=== PATIENT | male | born 1985 | race African-American/Black ===

== ENCOUNTER 2020-01-14 10:24 | Emergency (ER) | payer MEDICAID, SELFPAY ==
[~2020-01-14] VITALS: Ht 172.7 cm; Wt 64.7 kg
[2020-01-14] MEDS ORDERED: NS 1,000 ML IV ONE (10:45)
[2020-01-14 11:13] LABS: BASO % 0.4 % (0.0-1.0); EOS # 0.1 10^3/uL (0.0-0.5); EOS % 0.8 % (0.0-3.0); HEMATOCRIT 39.5 % (42.0-52.0); HEMOGLOBIN 13.8 g/dl (13.5-17.5); LYMPH # 1.8 10^3/uL (1.5-5.0); LYMPH % 23.1 % (24.0-44.0); MEAN CORPUSCULAR HEMOGLOBIN 29.1 pg (27.0-33.0); MEAN CORPUSCULAR HGB CONC 34.9 g/dl (32.0-36.5); MEAN CORPUSCULAR VOLUME 83.3 fl (80.0-96.0); MONO # 0.5 10^3/uL (0.0-0.8); NEUTROPHILS # 5.2 10^3/uL (1.5-8.5); NEUTROPHILS % 68.4 % (36.0-66.0); PLATELET COUNT, AUTOMATED 189 10^3/uL (150-450); RED BLOOD COUNT 4.74 10^6/uL (4.30-6.10); WHITE BLOOD COUNT 7.6 10^3/uL (4.0-10.0)
[2020-01-14 12:13] LABS: ALBUMIN 3.6 GM/DL (3.2-5.2); BILIRUBIN,DIRECT 0.1 MG/DL (0.0-0.2); BILIRUBIN,TOTAL 0.8 MG/DL (0.2-1.0); TOTAL PROTEIN 7.4 GM/DL (6.4-8.2)
[2020-01-14 12:28] VITALS: BP 143/99
== END 2020-01-14 12:29 | disposition home or self-care (01) ==
LOC: M ED 10:24
DX: R19.7 Diarrhea, unspecified (principal)

== ENCOUNTER 2020-04-14 20:10 | Emergency (ER) | payer MEDICAID, SELFPAY ==
[~2020-04-14] VITALS: Ht 172.7 cm; Wt 63.6 kg
[2020-04-14 20:47] LABS: HEMATOCRIT 43.9 % (42.0-52.0); HEMOGLOBIN 14.7 g/dl (13.5-17.5); MEAN CORPUSCULAR HEMOGLOBIN 27.7 pg (27.0-33.0); MEAN CORPUSCULAR HGB CONC 33.5 g/dl (32.0-36.5); MEAN CORPUSCULAR VOLUME 82.8 fl (80.0-96.0); PLATELET COUNT, AUTOMATED 216 10^3/uL (150-450); WHITE BLOOD COUNT 10.5 10^3/uL (4.0-10.0)
[2020-04-14] MEDS ORDERED: diphenhydrAMINE 50MG/ML VIAL (J1200) IM ONE (21:15)
[2020-04-14] MEDS ORDERED: HALOPERIDOL 5MG/ML VIAL (J1630 PER 1) IM ONE (21:15)
[2020-04-14] MEDS ORDERED: LORazepam 2 MG/ML VIAL IM ONE (21:15)
[2020-04-14 21:25] LABS: ACETAMINOPHEN LEVEL < 2.0 UG/ML (10.0-30.0); ALBUMIN 4.2 GM/DL (3.2-5.2); ALT/SGPT 18 U/L (12-78); AMPHETAMINES LEVEL URINE NEGATIVE (NEGATIVE); BARBITURATES URINE NEGATIVE (NEGATIVE); BENZODIAZEPINES URINE NEGATIVE (NEGATIVE); BILIRUBIN,DIRECT 0.2 MG/DL (0.0-0.2); BILIRUBIN,TOTAL 0.7 MG/DL (0.2-1.0); BLOOD UREA NITROGEN 18 MG/DL (7-18); CALCIUM LEVEL 9.2 MG/DL (8.5-10.1); CANNABINOIDS URINE POSITIVE (NEGATIVE); CARBON DIOXIDE LEVEL 28 MEQ/L (21-32); CHLORIDE LEVEL 110 MEQ/L (98-107); COCAINE METABOLITE URINE NEGATIVE (NEGATIVE); CREATININE FOR GFR 1.11 MG/DL (0.70-1.30); ETHYL ALCOHOL (ETHANOL) 0.361 % (0.000-0.010); GLOMERULAR FILTRATION RATE > 60.0 (>60); GLUCOSE, FASTING 121 MG/DL (70-100); METHADONE URINE NEGATIVE (NEGATIVE); OPIATES URINE NEGATIVE (NEGATIVE); PHENCYCLIDINE URINE NEGATIVE (NEGATIVE); POTASSIUM SERUM 3.7 MEQ/L (3.5-5.1); SALICYLATE LEVEL 2.1 MG/DL (5.0-30.0); SODIUM LEVEL 144 MEQ/L (136-145); TOTAL PROTEIN 8.2 GM/DL (6.4-8.2)
[2020-04-15] MEDS ORDERED: LORazepam 2 MG TAB PO PRN (06:00)
[2020-04-15] MEDS ORDERED: THIAMINE 100 MG TAB PO SCH (06:01)
[2020-04-15] MEDS ORDERED: MULTIVITAMINS/MINERALS THERAP 1 TAB PO SCH (09:00)
[2020-04-15] MEDS ORDERED: FOLIC ACID 1 MG TAB PO SCH (09:00)
[2020-04-15 11:07] VITALS: BP 136/85
== END 2020-04-15 11:10 | disposition home or self-care (01) ==
LOC: M ED 20:10
DX: F10.129 Alcohol abuse with intoxication, unspecified (principal); F43.21 Adjustment disorder with depressed mood
CPT/HCPCS: 36415; 80048; 80076; 80307; 84443; 85027; 96372; 99285; G0480; J1200; J1630; J2060

== ENCOUNTER 2020-04-29 14:52 | Emergency (ER) | payer MEDICAID ==
[~2020-04-29] VITALS: Ht 172.7 cm; Wt 64.2 kg
[2020-04-29] MEDS ORDERED: BOOSTRIX/ADACEL VACCINE (DIPHTH/PERTUSS/ACELL/TETANUS) 0.5ML SYR IM ONE (15:00)
[2020-04-29] MEDS: NS 1,000 ML IV SCH ×2 (15:10→21:38)
[2020-04-29 15:17] LABS: HEMATOCRIT 42.3 % (42.0-52.0); HEMOGLOBIN 14.3 g/dl (13.5-17.5); MEAN CORPUSCULAR HEMOGLOBIN 27.9 pg (27.0-33.0); MEAN CORPUSCULAR HGB CONC 33.8 g/dl (32.0-36.5); MEAN CORPUSCULAR VOLUME 82.5 fl (80.0-96.0); PLATELET COUNT, AUTOMATED 207 10^3/uL (150-450); RED BLOOD COUNT 5.13 10^6/uL (4.30-6.10); WHITE BLOOD COUNT 10.5 10^3/uL (4.0-10.0)
[2020-04-29 15:43] LABS: AMPHETAMINES LEVEL URINE NEGATIVE (NEGATIVE); BARBITURATES URINE NEGATIVE (NEGATIVE); BENZODIAZEPINES URINE NEGATIVE (NEGATIVE); CANNABINOIDS URINE POSITIVE (NEGATIVE); COCAINE METABOLITE URINE NEGATIVE (NEGATIVE); METHADONE URINE NEGATIVE (NEGATIVE); OPIATES URINE NEGATIVE (NEGATIVE); PHENCYCLIDINE URINE NEGATIVE (NEGATIVE)
[2020-04-29 15:56] LABS: ALBUMIN 3.5 GM/DL (3.2-5.2); ALT/SGPT 30 U/L (12-78); BILIRUBIN,DIRECT 0.2 MG/DL (0.0-0.2); BILIRUBIN,TOTAL 0.9 MG/DL (0.2-1.0); BLOOD UREA NITROGEN 14 MG/DL (7-18); CALCIUM LEVEL 7.9 MG/DL (8.5-10.1); CARBON DIOXIDE LEVEL 24 MEQ/L (21-32); CHLORIDE LEVEL 114 MEQ/L (98-107); CREATININE FOR GFR 0.72 MG/DL (0.70-1.30); ETHYL ALCOHOL (ETHANOL) 0.278 % (0.000-0.010); GLOMERULAR FILTRATION RATE > 60.0 (>60); GLUCOSE, FASTING 78 MG/DL (70-100); POTASSIUM SERUM 3.7 MEQ/L (3.5-5.1); SALICYLATE LEVEL < 1.7 MG/DL (5.0-30.0); SODIUM LEVEL 146 MEQ/L (136-145); THYROID STIMULATING HORMONE 0.431 uIU/ML (0.358-3.740); TOTAL PROTEIN 6.9 GM/DL (6.4-8.2)
[2020-04-29 15:57] LABS: ACETAMINOPHEN LEVEL < 2.0 UG/ML (10.0-30.0)
[2020-04-29] MEDS ORDERED: ONDANSETRON 4 MG ORAL DISINTEGRATING TAB PO ONE (18:30)
[2020-04-30] MEDS: NS 1,000 ML IV SCH (03:49)
--- NOTE | 2020-04-30 06:45 | ECGEPIP ---
[facility] - ED Test Date: 2020-04-30 Pat Name: GLORIA SONI Department: Room: - Gender: Male [employer] Assistant: roel : 1985 Requested By: BRADEN Reyes Order Number: [id number] Reading MD: Brittany Bhatt Measurements Intervals [place] Rate: 69 P: 59 MN: 165 QRS: 11 QRSD: 82 T: 26 QT: 387 QTc: 416 Interpretive Statements SINUS RHYTHM POSSIBLE RIGHT VENTRICULAR CONDUCTION DELAY NONSPECIFIC ST T WAVE CHANGES NO PRIOR ECG FOR COMPARISON Electronically Signed on 04-30-2020 6:45:01 EST by Brittany Bhatt
[2020-04-30 08:56] VITALS: BP 143/86
== END 2020-04-30 08:58 ==
LOC: M ED 14:52
DX: R45.851 Suicidal ideations (principal); F32.9 Major depressive disorder, single episode, unspecified; F10.20 Alcohol dependence, uncomplicated
CPT/HCPCS: 80048; 80076; 80307; 84443; 85027; 90471; 90715; 93005; 96360; 96361; 99285; G0480; U0002

== ENCOUNTER 2020-07-12 18:56 | Emergency (ER) | payer OTHER ==
[~2020-07-12] VITALS: Ht 172.7 cm; Wt 65.9 kg
--- OUTSIDE RECORDS SUMMARY | 2020-07-12 19:04 | CCD ---
Author Author Marck Pito Sibley Organization Unknown Address [address] [address] Phone Care Team Providers Care Account Group Supervisor Name Role Phone Maryjo Acharya PCP Allergies, Adverse Reactions, Alerts No Data in Section Problem List Concept Problem Description Status Start Date Created Date Resolv ed Date Snomed Code F33.2 Major Depressive Disorder, Recurrent episode, Severe Activ e 06/13/2020 F10.20 Alcohol Use Disorder, Moderate Active F15.10 Stimulant Use Disorder, Mild: Other or unspecified sti mulant Active 06/13/2020 F12.10 Cannabis Use Disorder, Mild Active 06/13/2020 F17.200 Tobacco Use Disorder, Moderate Active 1 Medications No Data in Section Social History Social History Element Description Concept Effective Date Smoking Status Unknown if ever smoked [id number] Immunizations No Data in Section Vital Signs No Data in Section Procedures Date Concept Id Description Targeted Site Concept Targeted Site Concept Type 06/13/2020 42358 Brief Individual Psychotherapy - 30 min CPT Patient has no history of implantable de vices Encounters Encounter Start Date End Date Encounter Type Description Diagnosis Di agnosis Desc Location Author First Name Author Last Name Npid Taxonomy Cod e Taxonomy Desc Phone Number Location Addr1 Location Addr2 Location [facility] Location [facility] Location [facility] [id number] 06/13/2020 06/13/2020 50280 Brief Individual Psychoth erapy - 30 min F33.2 Major depressv disorder, recurrentsevere w/o psych fea des [facility] Marck Sibley [id number] Mental Health [id number] [phone] Plan of Treatment No Data in Section Lab Results No Data in Section Instructions No Data in Section Insurance Providers Insurance Id Policy Effective Date Policy Thru Date Company N wu [id number] 2020 [employer] Paulette leyva
--- OUTSIDE RECORDS SUMMARY | 2020-07-12 19:04 | CCD ---
Author Author Marck Pito Sibley Organization Unknown Address [address] [address] Phone Care Team Providers Care Arm Rest Builder Name Role Phone Maryjo Acharya PCP Allergies, Adverse Reactions, Alerts No Data in Section Problem List Concept Problem Description Status Start Date Created Date Resolv ed Date Snomed Code F33.2 Major Depressive Disorder, Recurrent episode, Severe Activ e 06/02/2020 F10.20 Alcohol Use Disorder, Moderate Active F15.10 Stimulant Use Disorder, Mild: Other or unspecified sti mulant Active 06/02/2020 F12.10 Cannabis Use Disorder, Mild Active 06/02/2020 F17.200 Tobacco Use Disorder, Moderate Active 1 Medications No Data in Section Social History Social History Element Description Concept Effective Date Smoking Status Unknown if ever smoked [id number] Immunizations No Data in Section Vital Signs No Data in Section Procedures Date Concept Id Description Targeted Site Concept Targeted Site Concept Type 06/02/2020 40912 Psychiatric Diagnostic Evaluation (Non-Medical) CPT Patient has no history of implantable de vices Encounters Encounter Start Date End Date Encounter Type Description Diagnosis Di agnosis Desc Location Author First Name Author Last Name Npid Taxonomy Cod e Taxonomy Desc Phone Number Location Addr1 Location Addr2 Location [facility] Location [facility] Location [facility] [id number] 06/02/2020 06/02/2020 91067 Psychiatric [place] gnostic Evaluation (Non-Medical) F33.2 Major depressv disorder, recurrentsevere w/o psych features [facility] Marck Sibley [id number] Mental Health [phone] [address] [phone] Plan of Treatment No Data in Section Lab Results No Data in Section Instructions No Data in Section Insurance Providers Insurance Id Policy Effective Date Policy Thru Date Company N wu [id number] 2020 [employer] Paulette leyva
--- OUTSIDE RECORDS SUMMARY | 2020-07-12 19:04 | CCD ---
Author Author Pito Acharya Organization Unknown Address [address] [address] Phone Care Team Providers Care Composite Technician Name Role Phone Maryjo Acharya PCP Allergies, Adverse Reactions, Alerts No Data in Section Problem List Concept Problem Description Status Start Date Created Date Resolv ed Date Snomed Code F33.2 Major Depressive Disorder, Recurrent episode, Severe Activ e 05/23/2020 F10.20 Alcohol Use Disorder, Moderate Active 0 F15.10 Stimulant Use Disorder, Mild: Other or unspecified sti mulant Active 05/23/2020 F12.10 Cannabis Use Disorder, Mild Active 05/23/2020 F17.200 Tobacco Use Disorder, Moderate Active 0 Medications No Data in Section Social History Social History Element Description Concept Effective Date Smoking Status Unknown if ever smoked [id number] Immunizations No Data in Section Vital Signs No Data in Section Procedures Date Concept Id Description Targeted Site Concept Targeted Site Concept Type 05/23/2020 04092 Extended Individual Psychotherapy - 45 min CPT Patient has no history of implantable de vices Encounters Encounter Start Date End Date Encounter Type Description Diagnosis Di agnosis Desc Location Author First Name Author Last Name Npid Taxonomy Cod e Taxonomy Desc Phone Number Location Addr1 Location Addr2 Location [facility] Location [facility] [place] Location [facility] [id number] 05/23/2020 05/23/2020 81016 Extended Individual Psych otherapy - 45 min F33.2 Major depressv disorder, recurrentsevere w/o psych fea tures [facility] Marck Sibley [id number] Mental He alth [phone] [address] [phone] Plan of Treatment No Data in Section Lab Results No Data in Section Instructions No Data in Section Insurance Providers Insurance Id Policy Effective Date Policy Thru Date Company N wu [id number] 2020 [employer] M' caid
--- OUTSIDE RECORDS SUMMARY | 2020-07-12 19:04 | CCD | Summary of Care ---
Demographics Preferred Language Unknown Marital Status Unknown Latter Day Affiliation Unknown Race Unknown Ethnic Group Unknown Author Author [facility] Address Unknown Phone Unavailable Care Team Providers Care President & Ceo Name Role Phone PCP Unavailable Encounter Details Care Team Description Date Type Department 04/30/2020 [facility] TRANSFER CE NTER Encounter [address] [place] [address] Allergies Not on Filedocumented as of this encounter (statuses as of 05/15/2020) Medications Not on filedocumented as of this encounter (statuses as of 05/15/2020) Active Problems Not on filedocumented as of this encounter (statuses as of 05/15/2020) Social History Date Tobacco Use Types Packs/Day Years Used Never Assessed Sex Assigned at Date Recorded Not on file documented as of this encounter Last Filed Vital Signs Not on filedocumented in this encounter Progress Notes * Yamilex Sam RN - 04/30/2020 4:44 AM EST I was asked to ascertain bed availability for this patient and have determined t hat no appropriate bed for this individual patient is available at either campus . This includes hallway beds or other accommodations that we would customarily m jami for this individual patient's needs. documented in this encounter Plan of Treatment Health Maintenance Due Date Last Done Comments MMR Vaccines (1 of - 08/13/1987 Standard series) Varicella Vaccines ( of 08/13/1987 2 - 2-dose childhood series) DTaP,Tdap,and Td Vaccines 1993 (1 - Tdap) HIV Screening 08/13/1999 Influenza Vaccine 02/24/2020 Pneumococcal Vaccine: 65+ 08/13/2051 Years (1 of 1 - PPSV23) HIB Vaccines Aged Out No longer eligible based on patient's age to complete this topic Hepatitis A Vaccines Aged Out No longer eligibl e based on patient's age to complete this topic Hepatitis B Vaccines Aged Out No longer eligibl e based on patient's age to complete this topic IPV Vaccines Aged Out No longer eligible based on patient's age to complete this topic Pneumococcal Vaccine: Aged Out No longer eligib le based on patient's age to Pediatrics (0 to 5 Years) complete this topic and At-Risk Patients (6 to 64 Years) documented as of this encounter Results Not on filedocumented in this encounter
--- OUTSIDE RECORDS SUMMARY | 2020-07-12 19:04 | CCD ---
Author Author Pito Sethi Organization Unknown Address [address] [address] Phone Care Team Providers Care Audit Analyst Name Role Phone Danitza Sethi PCP Allergies, Adverse Reactions, Alerts No Data in Section Problem List Concept Problem Description Status Start Date Created Date Resolv ed Date Snomed Code F33.2 Major Depressive Disorder, Recurrent episode, Severe Activ e 05/30/2020 F10.20 Alcohol Use Disorder, Moderate Active F15.10 Stimulant Use Disorder, Mild: Other or unspecified sti mulant Active 05/30/2020 F12.10 Cannabis Use Disorder, Mild Active 05/30/2020 F17.200 Tobacco Use Disorder, Moderate Active 1 Medications No Data in Section Social History Social History Element Description Concept Effective Date Smoking Status Unknown if ever smoked [id number] Immunizations No Data in Section Vital Signs No Data in Section Procedures Date Concept Id Description Targeted Site Concept Targeted Site Concept Type 05/30/2020 07517-16 Telemed Diagnostic Eval C PT Patient has no history of implantable de vices Encounters Encounter Start Date End Date Encounter Type Description Diagnosis Di agnosis Desc Location Author First Name Author Last Name Npid Taxonomy Cod e Taxonomy Desc Phone Number Location Addr1 Location Addr2 Location [facility] Location [facility] Location [facility] [id number] 05/30/2020 05/30/2020 23245-20 Telemed Diagnostic Eval F33. 2 Major depressv disorder, recurrentsevere w/o psych features [facility] Navdeep Bosch [id number] [id number] Psychiatric/Mental Health [phone] [address] [phone] Plan of Treatment No Data in Section Lab Results No Data in Section Instructions No Data in Section Insurance Providers Insurance Id Policy Effective Date Policy Thru Date Company N wu [id number] 2020 [employer] Paulette leyva
--- OUTSIDE RECORDS SUMMARY | 2020-07-12 19:04 | CCD ---
Author Author Pito Levy Organization Unknown Address [address] [address] Phone Care Team Providers Care Family Service Worker Name Role Phone Cam Praveena PCP Allergies, Adverse Reactions, Alerts No Data in Section Problem List Concept Problem Description Status Start Date Created Date Resolv ed Date Snomed Code F33.2 Major Depressive Disorder, Recurrent episode, Severe Activ e 05/09/2020 F10.20 Alcohol Use Disorder, Moderate Active 0 F15.10 Stimulant Use Disorder, Mild: Other or unspecified sti mulant Active 05/09/2020 F12.10 Cannabis Use Disorder, Mild Active 05/09/2020 F17.200 Tobacco Use Disorder, Moderate Active 0 Medications No Data in Section Social History Social History Element Description Concept Effective Date Smoking Status Unknown if ever smoked [id number] Immunizations No Data in Section Vital Signs No Data in Section Procedures Date Concept Id Description Targeted Site Concept Targeted Site Concept Type 05/08/2020 61443 Extended Individual Psychotherapy - 45 min CPT Patient has no history of implantable de vices Encounters Encounter Start Date End Date Encounter Type Description Diagnosis Di agnosis Desc Location Author First Name Author Last Name Npid Taxonomy Cod e Taxonomy Desc Phone Number Location Addr1 Location Addr2 Location [facility] Location [facility] Location [facility] [id number] 05/08/2020 05/08/2020 58808 Extended Individual Psych otherapy - 45 min F33.2 Major depressv disorder, recurrentsevere w/o psych fea tures [facility] Cam Praveena [phone] [id number] Social Wo rker [phone] [address] [phone] Plan of Treatment No Data in Section Lab Results No Data in Section Instructions No Data in Section Insurance Providers Insurance Id Policy Effective Date Policy Thru Date Company N wu [id number] 2020 [employer] Man[employer] MMaria Guadalupe mcdonnelld
--- OUTSIDE RECORDS SUMMARY | 2020-07-12 19:04 | CCD ---
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 Name Role Phone Anabella DONNELLY MD Unavailable Unavailable CONYAnabella MD Unavailable Unavailable CONYAnabella MD Unavailable Unavailable CONYAnabella MD Unavailable Unavailable CONYAnabella MD Unavailable Unavailable CONYAnabella MD Unavailable Unavailable CONYAnabella MD Unavailable Unavailable CONYAnabella MD Unavailable Unavailable CONYAnabella MD Unavailable Unavailable CONYAnabella MD Unavailable Unavailable CONYAnabella MD Unavailable Unavailable CONYAnabella MD Unavailable Unavailable CONYAnabella BEAVERS MD Unavailable Unavailable CONYAnabella BEAVERS MD Unavailable Unavailable CONYAnabella BEAVERS MD Unavailable Unavailable CONYAnabella BEAVERS MD Unavailable Unavailable CONYAnabella MD Unavailable Unavailable CONYAnabella MD Unavailable Unavailable CONYAnabella MD Unavailable Unavailable CONYAnabella BEAVERS MD Unavailable Unavailable CONYAnabella MD Unavailable Unavailable CONYAnabella MD Unavailable Unavailable CONYAnabella BEAVERS MD Unavailable Unavailable CONYAnabella BEAVERS MD Unavailable Unavailable Anabella DONNELLY MD Unavailable Unavailable Anabella DONNELLY MD Unavailable Unavailable Anabella DONNELLY MD Unavailable Unavailable Anabella DONNELLY MD Unavailable Unavailable Anabella DONNELLY MD Unavailable Unavailable Anabella DONNELLY MD Unavailable Unavailable Anabella DONNELLY MD Unavailable Unavailable CONYAnabella BEAVERS MD Unavailable Unavailable CONYAnabella MD Unavailable Unavailable CONY, Anabella HERNANDEZ MD Unavailable Unavailable CONY, Anabella HERNANDEZ MD Unavailable Unavailable CONY, Anabella HERNANDEZ MD Unavailable Unavailable CONY, Anabella HERNADNEZ MD Unavailable Unavailable CONY, Anabella HENRANDEZ MD Unavailable Unavailable CONY, Anabella HERNANDEZ MD Unavailable Unavailable CONY, Anabella HERNANDEZ MD Unavailable Unavailable CONY, Anabella HERNANDEZ MD Unavailable Unavailable CONY, Anabella HERNANDEZ MD Unavailable Unavailable CONY, Anabella HERNANDEZ MD Unavailable Unavailable Colon, Candido Unavailable Unavailable Colon, Candido Unavailable Unavailable Colon, Candido Unavailable Unavailable Colon, Candido Unavailable Unavailable Praveena Levy Unavailable Toya, Michael ASTRONOMY TEACHER Unavailable Toya, Michael ASTRONOMY TEACHER Unavailable Toya, Michael ASTRONOMY TEACHER Unavailable SYSTEM, NOT IN PROVIDER Unavailable Unavailable MACQUEEN, AMRIK ASTRONOMY TEACHER Unavailable Unavailable MACQUEEN, AMRIK ASTRONOMY TEACHER Unavailable Unavailable MACQUEEN, AMRIK ASTRONOMY TEACHER Unavailable Unavailable MACQUEEN, AMRIK ASTRONOMY TEACHER Unavailable Unavailable MACQUEEN, AMRIK ASTRONOMY TEACHER Unavailable Unavailable MACQUEEN, AMRIK ASTRONOMY TEACHER Unavailable Unavailable MACQUEEN, AMRIK ASTRONOMY TEACHER Unavailable Unavailable MACQUEEN, AMRIK ASTRONOMY TEACHER Unavailable Unavailable MACQUEEN, AMRIK ASTRONOMY TEACHER Unavailable Unavailable MACQUEEN, AMRIK ASTRONOMY TEACHER Unavailable Unavailable MACQUEEN, AMRIK ASTRONOMY TEACHER Unavailable Unavailable Marck, Maryjo Unavailable AlthouseMercedes ASTRONOMY TEACHER Unavailable Unavailable Re-disclosure Warning The records that you are about to access may contain information from federally-assisted alcohol or drug abuse programs. If such information is present, then the following federally mandated warning applies: This information has been disclosed to you from records protected by federal confidentiality rules (42 CFR part 2). The federal rules prohibit you from making any further disclosure of this information unless further disclosure is expressly permitted by the written consent of the person to whom it pertains or as otherwise permitted by 42 CFR part 2. A general authorization for the release of medical or other information is NOT sufficient for this purpose. The Federal rules restrict any use of the information to criminally investigate or prosecute any alcohol or drug abuse patient.The records that you are about to access may contain highly sensitive health information, the redisclosure of which is protected by Article 27-F of the [place] State Public Health law. If you continue you may have access to information: Regarding HIV / AIDS; Provided by facilities licensed or operated by the [facility] Office of Mental Health; or Provided by the [facility] Office for People With Developmental Disabilities. If such information is present, then the following [facility] mandated warning applies: This information has been disclosed to you from confidential records which are protected by state law. State law prohibits you from making any further disclosure of this information without the specific written consent of the person to whom it pertains, or as otherwise permitted by law. Any unauthorized further disclosure in violation of state law may result in a fine or long term sentence or both. A general authorization for the release of medical or other information is NOT sufficient authorization for further disc losure. Allergies and Adverse Reactions Type Description Substance Reaction Status Data Source(s ) Drug allergy No Known Allergies No Known Allergies [facility] Drug allergy Drug allergy No Known Allergies [facility] Encounters Encounter Providers Location Date Indications Data Source(s ) Brief Individual [facility] - 30 min [facility] 12:00:00 PM EST - 06/13/2020 12:00:00 PM EST [facility] ([facility]) Attender: Maryjo Marck 06/13/2020 12:00:00 AM EST [facility] ([facility]) Psychiatric Diagnostic Evaluation (Non-Medical) Attender: Leticia mccormick [facility] 06/02/2020 10:00:00 AM EST - 06/02/2020 10:00:00 AM EST [facility] ([facility]) Attender: Maryjo Marck 06/02/2020 12:00:00 AM EST [facility] ([facility]) Telemed Diagnostic Eval Attender: AMRIK JOHNSON NP [facility] 05/30/2020 10:00:00 AM EST - 05/30/2020 10:00:00 AM EST [facility] ([facility]) Attender: AMRIK JOHNSON NP 05/30/2020 12:00:00 AM EST [facility] ([facility]) Extended Individual Psychotherapy - 45 min Attender: Maryjo Marck [facility] 05/23/2020 11:00:00 AM EST - 05/23/2020 11:00:00 AM EST [facility] ([facility]) Attender: Maryjo Marck 05/23/2020 12:00:00 AM EST [facility] ([facility]) Extended Individual Psychotherapy - 45 min Att[facility]: [facility] 05/08/2020 03:00:00 AM EST - 05/08/2020 03:00:00 AM EST [facility] ([facility]) Attender: Praveena Levy 05/08/2020 12:00:00 AM EST [facility] ([facility]) Outpatient Referrer: PROVIDER SYSTEM [id number] 04/30/2020 04:4 4:00 AM EST [facility] psych Outpatient Attender: Mercedes Diaz PAdmitter: Candido ColonConsultant: Candido Colon 04/30/2020 02:00:00 AM EST [facility] Inpatient Attender: Candido ColonAdmitter: Candido Colon 04/30/2020 02:00:00 AM EST - 05/03/2020 12:14:00 PM EST [facility] Patient discharged. Outpatient Attender: Mercedes Murciamitter: Candido ColonConsultant: Candido Colon 04/30/2020 02:00:00 AM EST [facility] Outpatient Attender: Michael Pittman NPAdmitter: Candido ColonConsultant: Candido Colon 04/30/2020 02:00:00 AM EST [facility] Outpatient Attender: Mercedes Diaz PAdmitter: Candido ColonConsultant: Candido Colon 04/30/2020 02:00:00 AM EST [facility] Inpatient Attender: MARY DONNELLY MDAdmitter: MARY DONNELLY MD ED-[facility] 03/20/2020 02:05:00 PM EDT - 03/20/2020 06:39:00 PM EDT F1920 F1020 [facility] F1920 F1020 Patient discharged. Inpatient Attender: MARY DONNELLY MDAdmitter: MARY DONNELLY MD ED-MSP 03/20/2020 09:00:00 AM EDT - 03/20/2020 05:00:00 PM EDT F1920 [facility] F1920 Medications Medication Brand Name Start Date Product Form Dose Route Admi nistrative Instructions Pharmacy Instructions Status Indications Reaction Description Data Source(s) 1 mg 05/04/2020 12:00:00 AM EST tablet 30 TAKE ONE TABLET BY MOUTH EVERY DAY TAKE ONE TABLET BY MOUTH EVERY DAY SOLD: 05/04/2020 [facility] 25 mg 05/04/2020 12:00:00 AM EST tablet 30 TAKE ONE TABLET BY MOUTH EVERY DAY TAKE ONE TABLET BY MOUTH EVERY DAY SOLD: 05/04/2020 [facility] 100 mg 05/04/2020 12:00:00 AM EST tablet 30 TAKE ONE TABLET BY MOUTH EVERY DAY TAKE ONE TABLET BY MOUTH EVERY DAY SOLD: 05/04/2020 [facility] Naltrexone hydrochloride 50 MG Oral Tablet NALTREXONE HCL 05/04/2020 12:00:00 AM EST tablet 30 TAKE ONE TABLET BY MOUTH GRUPO TAKE ONE TABLET BY MOUTH EVERY DAY SOLD: 05/04/2020 [facility] 50 mg 05/04/2020 12:00:00 AM EST tablet 30 TAKE ONE TABLET BY MOUTH AT BEDTIME TAKE ONE TABLET BY MOUTH AT BEDTIME SOLD: 05/04/2020 [facility] 25 mcg (1,000 unit) 05/04/2020 12:00:00 AM EST tablet 30 TAKE ONE TABLET BY MOUTH AT BEDTIME TAKE ONE TABLET BY MOUTH AT BEDTIME SOLD: 05/04/2020 [facility] Insurance Providers Payer name Policy type / Coverage type Policy ID Covered constitution party ID Covered constitution party's relationship to rodriguez Policy Rodriguez Plan Information [facility] [id number] SP [id number] MEDICAID [id number] Admitting [id number] EMEDNY [id number] SP [id number] [facility] [id number] SP [id number] SELF PAY Emedny [id number] SP [id number] SELF PAY ONLY [id number] SP [id number] MEDICAID [id number] MEDICAID [id number] SP [id number] Problems, Conditions, and Diagnoses Code Display Name Description Problem Type Effective Dates Data Source(s) F17.200 Nicotine dependence, unspecified, uncomp licated Tobacco Use Disorder, Moderate Condition 06/13/2020 12:00:00 AM EST [facility] ([facility]) F12.10 Cannabis abuse, uncomplicated Cannabis Use Disorder, M ild Condition 06/13/2020 12:00:00 AM EST [facility] ([facility]) F15.10 Other stimulant abuse, uncomplicated Sti mulant Use Disorder, Mild: Other or unspecified stimulant Condition 06/13/2020 12:00:00 AM EST [facility] ([facility]) F10.20 Alcohol dependence, uncomplicated Alcohol Use Di sorder, Moderate Condition 06/13/2020 12:00:00 AM EST [facility] ([facility]) F33.2 Major depressive disorder, recurrent 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 Major Depressive Disorder, Recurrent episode, Severe Condition 0 06/13/2020 12:00:00 AM EST [facility] ([facility]) psych psych Diagnosis 04/30/2020 04:44:00 AM [facility] M25.511 Pain in right shoulder M25.511 - Pain in right shoulde r Diagnosis 04/30/2020 02:00:00 AM EST [facility] R45.851 Suicidal ideations R45.851 - Suicidal ideations Diagno sis 04/30/2020 02:00:00 AM EST [facility] F41.9 Anxiety disorder, unspecified F41.9 - Anxiety di sorder, unspecified Diagnosis 04/30/2020 02:00:00 AM EST [facility] F17.200 Nicotine dependence, unspecified, uncomp licated F17.200 - Nicotine dependence, unspecified, uncomplicated Diagnosis 04/30/2020 02:00:00 A M EST [facility] F10.20 Alcohol dependence, uncomplicated F10.20 - Alcohol dependence, uncomplicated Diagnosis 04/30/2020 02:00:00 AM EST [facility] F32.9 Major depressive disorder, single episod e, unspecified F32.9 - Major depressive disorder, single episode, unspecified Diagnosis 04/30 02:00:00 AM EST [facility] Z53.29 Procedure and treatment not carried out because of patient's decision for other reasons PROC/TRTMT NOT CRD OUT BEC PT DECISION FOR OTH REASONS Diagn osis 03/20/2020 09:00:00 AM [facility] 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 Surgeries/Procedures Procedure Description Date Indications Data Source(s) Brief Individual Psychotherapy - 30 min 06/13/2020 12:00:00 AM EST - 06/13/2020 12:00:00 AM EST [facility] ([facility]) Brief Individual Psychotherapy - 30 min 06/13/2020 12: 00:00 AM EST [facility] ([facility]) Psychiatric Diagnostic Evaluation (Non-Medical) 06/02/2020 12:00:00 AM EST - 06/02/2020 12:00:00 AM EST [facility] ([facility]) Psychiatric Diagnostic Evaluation (Non-Medical) 2020 12:00:00 AM EST [facility] ([facility]) Telemed Diagnostic Eval 05/30/2020 12:00 :00 AM EST - 05/30/2020 12:00:00 AM EST [facility] ([facility]) Telemed Diagnostic Eval 05/30/2020 12:00:00 AM EST [facility] ([facility]) Extended Individual Psychotherapy - 45 min 05/23/2020 12:00:00 AM EST - 05/23/2020 12:00:00 AM EST [facility] ([facility]) Extended Individual Psychotherapy - 45 min 0 12:00:00 AM EST [facility] ([facility]) Extended Individual Psychotherapy - 45 min 05/08/2020 12:00:00 AM EST - 05/08/2020 12:00:00 AM EST [facility] ([facility]) Extended Individual Psychotherapy - 45 min 0 12:00:00 AM EST [facility] ([facility]) Results ID Date Data Source [id number] 05/02/2020 09:56:00 AM [facility] Name Value Range Interpretation Code Description Data Nedra rce(s) Supporting Document(s) WHITE BLOOD COUNT 8.26 10^3/uL 4.00-10.50 [facility] RED BLOOD COUNT 4.91 10^6/uL 4.30-5.80 N [facility] th HEMOGLOBIN 13.8 G/DL 13.0-17.5 [facility] HEMATOCRIT 41.2 % 41.0-53.0 [facility] MCV 83.9 FL 80.0-100.0 [facility] MCH 28.1 PG 27.0-34.0 [facility] MCHC 33.5 G/DL 32-36 [facility] RDW 14.5 % 11.5-14.5 N [facility] PLATELET COUNT 158 10^3/uL 130-400 [facility] MPV 12.3 FL 8.7-13.2 N [facility] GRAN % (AUTO) 63.0 % 42.0-75.0 [facility] LYMPH % (AUTO) 25.8 % 20.0-51.0 N [facility] [employer] MONO % (AUTO) 7.1 % 2.0-15.0 N [facility] [employer] EOS % (AUTO) 3.5 % 0.0-11.0 [facility] BASO % (AUTO) 0.4 % 0.0-2.0 [facility] IG % (AUTO) 0.2 % 1.00-5.00 [facility] [employer] IG # (AUTO) 0.0 10^3/uL <0.5 [facility] GRAN # (AUTO) 5.20 10^3/uL 1.50-6.50 [facility] LYMPH # (AUTO) 2.1 k/uL 1.0-5.0 N [facility] [employer] MONO # (AUTO) 0.59 k/uL 0.20-1.50 [facility] EOS # (AUTO) 0.29 10^3/uL 0.00-1.10 N [facility] [employer] BASO # (AUTO) 0.03 10^3/uL 0.00-0.20 [facility] ID Date Data Source [id number] 05/02/2020 02:06:00 PM EST [facility] Name Value Range Interpretation Code Description Data Nedra rce(s) Supporting Document(s) RAPID PLASMA REAGIN NON-REACTIVE NONREACTIVE [facility] Test performed by charcoal methodology ID Date Data Source [id number] 05/02/2020 10:41:[address] [facility] Has Patient Fasted For The Past 12 Hour s? N Has Patient Fasted For The Past 12 Hour s? N Has Patient Fasted For The Past 12 Hour s? N Has Patient Fasted For The Past 12 Hour s? N Has Patient Fasted For The Past 12 Hour s? N Has Patient Fasted For The Past 12 Hour s? N Has Patient Fasted For The Past 12 Hour s? N Name Value Range Interpretation Code Description Data Nedra rce(s) Supporting Document(s) SODIUM 139 MEQ/L 135-145 N [facility] POTASSIUM 4.9 MEQ/L 3.5-5.3 N [facility] CHLORIDE 109 MEQ/L 94-110 N [facility] CARBON DIOXIDE 30 MEQ/L 22-33 N [facility] ANION GAP 5 5-16 N [facility] BLOOD UREA NITRO 18 MG/DL 7-25 N [facility] CREATININE 0.9 MG/DL 0.6-1.4 N [facility] GFR > 90.0 ML/MIN [facility] Stage G1 - Normal or high kidney functi on The GFR is an estimate of the Glomerular Filtration Rate. It is an aid to assess a patient's renal function. It is not a conclusive diagnosis of kidney disease. GFR normal is >=90 The MDRD GFR calculation is considered valid between the ages of 18 and 75 years only. BUN/CREAT RATIO 20 8-36 N [facility] GLUCOSE 84 MG/DL 70-100 N [facility] CA 8.9 MG/DL 8.7-10.5 [facility] BILIRUBIN,TOTAL 0.4 MG/DL 0.1-1.3 [facility] AST 45 U/L 5-40 H [facility] ALT 28 U/L 5-48 N [facility] ALKALINE PHOSPHATASE 50 U/L 40-140 [facility] alth TOTAL PROTEIN 5.9 G/DL 5.9-8.3 N [facility] ALBUMIN 3.9 G/DL 3.0-5.1 N [facility] GLOBULIN 2.0 G/DL 1.5-3.5 N [facility] ALB/GLOB RATIO 2.0 G/DL 1.0-3.0 N [facility] ID Date Data Source [id number] 05/02/2020 10:41:00 AM [facility] Has Patient Fasted For The Past 12 Hour s? N Has Patient Fasted For The Past 12 Hour s? N Has Patient Fasted For The Past 12 Hour s? N Has Patient Fasted For The Past 12 Hour s? N Has Patient Fasted For The Past 12 Hour s? N Has Patient Fasted For The Past 12 Hour s? N Has Patient Fasted For The Past 12 Hour s? N Name Value Range Interpretation Code Description Data Nedra rce(s) Supporting Document(s) GLYCOSYLATED HGBA1C 4.7 % 4.1-6.5 N [facility] ID Date Data Source [id number] 05/02/2020 10:41:00 AM [facility] [employer] Has Patient Fasted For The Past 12 Hour s? N Has Patient Fasted For The Past 12 Hour s? N Has Patient Fasted For The Past 12 Hour s? N Has Patient Fasted For The Past 12 Hour s? N Has Patient Fasted For The Past 12 Hour s? N Has Patient Fasted For The Past 12 Hour s? N Has Patient Fasted For The Past 12 Hour s? N Name Value Range Interpretation Code Description Data Nedra rce(s) Supporting Document(s) TRIGLYCERIDES 120 MG/DL 45-150 N [facility] CHOLESTEROL 166 MG/DL 125-200 [facility] LDL CHOLESTEROL 72 MG/DL 50-130 N [facility] [employer] HDL CHOLESTEROL 70 MG/DL 39-96 [facility] CHOL/HDL RATIO 2.4 0-4.9 N [facility] ID Date Data Source [id number] 05/02/2020 10:41:00 AM [facility] [employer] Has Patient Fasted For The Past 12 Hour s? N Has Patient Fasted For The Past 12 Hour s? N Has Patient Fasted For The Past 12 Hour s? N Has Patient Fasted For The Past 12 Hour s? N Has Patient Fasted For The Past 12 Hour s? N Has Patient Fasted For The Past 12 Hour s? N Has Patient Fasted For The Past 12 Hour s? N Name Value Range Interpretation Code Description Data Nedra rce(s) Supporting Document(s) VITAMIN B12 620 PG/ML -1999 N [facility] ID Date Data Source [id number] 05/02/2020 10:41:00 AM [facility] Has Patient Fasted For The Past 12 Hour s? N Has Patient Fasted For The Past 12 Hour s? N Has Patient Fasted For The Past 12 Hour s? N Has Patient Fasted For The Past 12 Hour s? N Has Patient Fasted For The Past 12 Hour s? N Has Patient Fasted For The Past 12 Hour s? N Has Patient Fasted For The Past 12 Hour s? N Name Value Range Interpretation Code Description Data Nedra rce(s) Supporting Document(s) FOLATE 11.67 NG/ML 3.40-24.00 N [facility] ID Date Data Source [id number] 05/02/2020 10:41:[address] [facility] Has Patient Fasted For The Past 12 Hour s? N Has Patient Fasted For The Past 12 Hour s? N Has Patient Fasted For The Past 12 Hour s? N Has Patient Fasted For The Past 12 Hour s? N Has Patient Fasted For The Past 12 Hour s? N Has Patient Fasted For The Past 12 Hour s? N Has Patient Fasted For The Past 12 Hour s? N Name Value Range Interpretation Code Description Data Nedra rce(s) Supporting Document(s) Vitamin D,25-HYDROXY 21.0 ng/ml 30-100 L [facility] ealt Vitamin D Status Range De ficiency <20 ng/ml Insufficiency 20-29.9 ng/ml Sufficiency 30-100 ng/ml Toxicity >100 ng/ml Patients should not be tested for 72 hours post fluorescein dye angiography. A false elevation of result may occur. ID Date Data Source [id number] 05/02/2020 10:41:[address] [facility] Has Patient Fasted For The Past 12 Hour s? N Has Patient Fasted For The Past 12 Hour s? N Has Patient Fasted For The Past 12 Hour s? N Has Patient Fasted For The Past 12 Hour s? N Has Patient Fasted For The Past 12 Hour s? N Has Patient Fasted For The Past 12 Hour s? N Has Patient Fasted For The Past 12 Hour s? N Name Value Range Interpretation Code Description Data Nedra rce(s) Supporting Document(s) TSH 1.798 uIU/ML 0.470-4.200 N [facility] Patients should not be tested for 72 ho urs post fluorescein dye angiography. A false depression of result may occur. ID Date Data Source [id number] 04/30/2020 05:16:00 AM EST [facility] Name Value Range Interpretation Code Description Data Nedra rce(s) Supporting Document(s) SARS coronavirus 2 RNA [Presence] in Res piratory specimen by KOFFI with probe detection [facility] This lab was ordered by [facility] a nd reported by [facility]. ID Date Data Source [id number] 04/30/2020 04:47:19 AM [facility] Name Value Range Interpretation Code Description Data Nedra rce(s) Supporting Document(s) Progress Note [facility] [id number] lbm [file] [id number] Procedure Social History Code Duration Value Status Description Data Source(s ) Smoking 06/13/2020 12:00:00 AM EST Unknown if ever smoked comp leted Unknown if ever smoked [facility] ([facility]) Smoking 06/02/2020 12:00:00 AM EST Unknown if ever smoked comp leted Unknown if ever smoked [facility] ([facility]) Smoking 05/30/2020 12:00:00 AM EST Unknown if ever smoked comp leted Unknown if ever smoked [facility] ([facility]) Smoking 05/23/2020 12:00:00 AM EST Unknown if ever smoked comp leted Unknown if ever smoked [facility] ([facility]) Smoking 05/08/2020 12:00:00 AM EST Unknown if ever smoked comp leted Unknown if ever smoked [facility] ([facility]) Vital Signs ID Date Data Source [id number] 04/30/2020 04:47:19 AM EST [facility] Name Value Range Interpretation Code Description Data Source(s) TRANSFER FROM [facility] ID Date Data Source [id number] 03/20/2020 06:39:00 PM EDT [facility] spital Name Value Range Interpretation Code Description Data Source(s) Weight Measurement Method [address] [facility] Weight (Calculated Kilograms) 64.[address] [facility] Weight 2291.2 2291.2 [facility] pital Temperature Source 7 7 [facility] Temperature 98.1 98.1 [facility] spital Respiratory Effort 1 1 [facility] Respiratory Rate 20 20 [facility] Pulse Assessment Method 4 [address] [facility] Pulse Rate 75 75 [facility] Height (Calculated Centimeters) 172.[address] [facility] Height 68 68 [facility] Blood Pressure 132/92 132/92 [facility] Body Mass Index (BMI) 21.7 21.7 [facility] Weight 2291.2 2291.2 [facility] Height 68 68 [facility]
[2020-07-12] MEDS ORDERED: cefTRIAXone 500MG VIAL (J0696 PER 250MG) IM ONE (19:30)
[2020-07-12] MEDS ORDERED: LIDOCAINE 1% SDV 5ML VIAL DILUENT ONE (19:30)
[2020-07-12] MEDS ORDERED: DOXY100C37 PO (19:32)
--- OUTSIDE RECORDS SUMMARY | 2020-07-12 19:48 | CCD ---
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 Pilot Name Role Phone Anabella DONNELLY MD Unavailable [...] Unavailable Unavailable Anabella DONNELLY MD Unavailable Unavailable Anbaella DONNELLY MD Unavailable Unavailable CONYAnabella BEAVERS MD [...] Unavailable Unavailable Anabella DONNELLY MD Unavailable Unavailable CONY, Anabella HERNANDEZ MD [...] Unavailable Unavailable Praveena Levy Unavailable Toya, Michael VISUAL C DEVELOPER Unavailable Toya, Michael VISUAL C DEVELOPER Unavailable Toya, Michael VISUAL C DEVELOPER Unavailable SYSTEM, NOT IN PROVIDER Unavailable Unavailable MACQUEEN, AMRIK VISUAL C DEVELOPER Unavailable Unavailable MACQUEEN, AMRIK VISUAL C DEVELOPER Unavailable Unavailable MACQUEEN, AMRIK VISUAL C DEVELOPER Unavailable Unavailable MACQUEEN, AMRIK VISUAL C DEVELOPER Unavailable Unavailable MACQUEEN, AMRIK VISUAL C DEVELOPER Unavailable Unavailable MACQUEEN, AMRIK VISUAL C DEVELOPER Unavailable Unavailable MACQUEEN, AMRIK VISUAL C DEVELOPER Unavailable Unavailable MACQUEEN, AMRIK VISUAL C DEVELOPER Unavailable Unavailable MACQUEEN, AMRIK VISUAL C DEVELOPER Unavailable Unavailable MACQUEEN, AMRIK VISUAL C DEVELOPER Unavailable Unavailable MACQUEEN, AMRIK VISUAL C DEVELOPER Unavailable Unavailable Marck, Maryjo Unavailable Mercedes Davenport VISUAL C DEVELOPER Unavailable Unavailable Re-disclosure Warning The records that [...] is protected by Article 27-F of the [place] State Public Health law. If you continue you may have access to information: Regarding HIV / AIDS; Provided by facilities licensed or operated by the [facility] Office of Mental Health; or Provided by the [facility] Office for People With Developmental Disabilities. If such information is present, then the following [facility] mandated warning applies: This information has been [...] law may result in a fine or assisted sentence or both. A general authorization for the release of medical or other information is NOT sufficient authorization for further disc losure. Allergies and Adverse Reactions Type Description Substance Reaction Status Data Source(s ) Drug allergy No Known Allergies No Known Allergies [facility] Drug allergy Drug allergy No Known Allergies [facility] Encounters Encounter Providers Location Date Indications Data Source(s ) Brief [facility] - [facility] 12[facility]00:00 PM EST - 06/13/2020 12:00:00 PM EST [facility] ([facility]) Attender: Maryjo Marck 06/13/2020 12:00:00 AM EST [facility] ([facility]) Psychiatric Diagnostic Evaluation (Non-Medical) Attender: Leticia mccormick [facility] 06/02/2020 10:00:00 AM EST - 06/02/2020 10:00:00 AM EST [facility] ([facility]) Attender: Maryjo Marck 06/02/2020 12:00:00 AM EST [facility] ([facility]) Telemed Diagnostic Eval Attender: AMRIK JOHNSON NP [facility] 05/30/2020 10:00:00 AM EST - 05/30/2020 10:00:00 AM EST [facility] ([facility]) Attender: AMRIK JOHNSON NP 05/30/2020 12:00:00 AM EST [facility] ([facility]) Extended Individual Psychotherapy - 45 min Attender: Maryjo Marck [facility] 05/23/2020 11:00:00 AM EST - 05/23/2020 11:00:00 AM EST [facility] ([facility]) Attender: Maryjo Blakeus 05/23/2020 12:00:00 AM EST [facility] ([facility]) Extended Individual Psychotherapy - 45 min Attender: Cheri Levy [facility] 05/08/2020 03:00:00 AM EST - 05/08/2020 03:00:00 AM EST [facility] ([facility]) Attender: Praveena Levy 05/08/2020 12:00:00 AM EST [facility] ([facility]) Outpatient Referrer: [place]ER [place] [id number] 04/30/2020 04:4 4:00 AM EST [facility] psych Outpatient Attender: Mercedes Diaz PAdmitter: Candido ColonConsultant: Candido Colon 04/30/2020 02:00:00 AM EST [facility] Inpatient Attender: Candido ColonAdmitter: Candido Colon 04/30/2020 02:00:00 AM EST - 05/03/2020 12:14:00 PM EST [facility] Patient discharged. Outpatient Attender: Mercedes Diaz PAdmitter: Candido ColonConsultant: Candido Colon 04/30/2020 02:00:00 AM EST [facility] Outpatient Attender: Michael Pittman NPAdmitter: Candido ColonConsultant: Canddio Colon 04/30/2020 02:00:00 AM EST [facility] Outpatient Attender: Mercedes Diaz PAdmitter: Candido ColonConsultant: Candido Colon 04/30/2020 02:00:00 AM EST [facility] Inpatient Attender: MARY DONNELLY MDAdmitter: MARY DONNELLY MD ED-MSP 03/20/2020 02:05:00 PM EDT - 03/20/2020 06:39:00 PM EDT F1920 F1020 [facility] F1920 F1020 Patient discharged. Inpatient Attender: MARY DONNELLY MDAdmitter: MARY DONNELLY MD ED-MSP 03/20/2020 09:00:00 AM EDT - 03/20/2020 05:00:00 PM EDT F1920 [facility] F1920 Medications Medication Brand Name Start [...] 30 TAKE ONE TABLET BY MOUTH GRUPO DAY TAKE ONE TABLET BY MOUTH EVERY [...] type / Coverage type Policy ID Covered libertarian ID Covered libertarian's relationship to thomason Policy Thomason Plan Information [facility] [place] [place] [id number] SP [id number] MEDICAID [id number] Admitting [id number] EMEDNY [id number] SP [id number] [facility] [id number] SP [id number] SELF PAY Emedny [id number] SP [id number] SELF PAY ONLY [id number] SP [id number] MEDICAID [id number] MEDICAID [id number] SP [id number] Problems, Conditions, and Diagnoses Code Display Name Description Problem Type Effective Dates Data Source(s) F17.200 Nicotine dependence, unspecified, uncomp licated Tobacco Use Disorder, Moderate Condition 06/13/2020 12:00:00 AM EST [facility] F12.10 Cannabis abuse, uncomplicated Cannabis Use Disorder, M ild Condition 06/13/2020 12:00:00 AM EST [facility] ([facility]) F15.10 Other stimulant abuse, uncomplicated Sti mulant Use Disorder, Mild: Other or unspecified stimulant Condition 06/13/2020 12:00:00 AM EST [facility] ([facility]) F10.20 Alcohol dependence, uncomplicated Alcohol Use Di sorder, Moderate Condition 06/13/2020 12:00:00 AM EST [facility] ([facility]) F33.2 Major depressive disorder, recurrent 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 Major Depressive Disorder, Recurrent episode, Severe Condition 0 06/13/2020 12:00:00 AM EST [facility] ([facility]) psych psych Diagnosis 04/30/2020 04:44:00 AM [facility] M25.511 Pain in right shoulder M25.511 - Pain in right shoulde r Diagnosis 04/30/2020 02:00:00 AM EST [facility] R45.851 Suicidal ideations R45.851 - Suicidal ideations Diagno sis 04/30/2020 02:00:00 AM EST [facility] F41.9 Anxiety disorder, unspecified F41.9 - Anxiety di sorder, unspecified Diagnosis 04/30/2020 02:00:00 AM EST [facility] F17.200 Nicotine dependence, unspecified, uncomp licated F17.200 - Nicotine dependence, unspecified, uncomplicated Diagnosis 04/30/2020 02:00:00 A M EST [facility] F10.20 Alcohol dependence, uncomplicated F10.20 - Alcohol dependence, uncomplicated Diagnosis 04/30/2020 02:00:00 AM EST [facility] F32.9 Major depressive disorder, single episod e, unspecified F32.9 - Major depressive disorder, single episode, unspecified Diagnosis 04/30 02:00:00 AM EST [facility] Z53.29 Procedure and treatment not carried out because of patient's decision for other reasons PROC/TRTMT NOT CRD OUT BEC PT DECISION FOR OTH REASONS Diagn osis 03/20/2020 09:00:00 AM EDT [facility] 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, uncomplicated OTHER PSYCHOACTIVE SUBSTANCE DEPENDENCE, UNCOMPLICATED Diagnosis 03/20/2020 09:00:00 AM E DT [facility] Surgeries/Procedures Procedure Description Date Indications Data Source(s) Brief Individual Psychotherapy - 30 min 06/13/2020 12:00:00 AM EST - 06/13/2020 12:00:00 AM EST [facility] ([facility]) Brief Individual Psychotherapy - 30 min 06/13/2020 12: 00:00 AM EST [facility] ([facility]) Psychiatric Diagnostic Evaluation (Non-Medical) 06/02/2020 12:00:00 AM EST - 06/02/2020 12:00:00 AM EST [facility] ([facility]) Psychiatric Diagnostic Evaluation (Non-Medical) 2020 12:00:00 AM EST [facility] ([facility]) Telemed Diagnostic Eval 05/30/2020 12:00 :00 AM EST - 05/30/2020 12:00:00 AM EST [facility] ([facility]) Telemed Diagnostic Eval 05/30/2020 12:00:00 AM EST [facility] ([facility]) Extended Individual Psychotherapy - 45 min 05/23/2020 12:00:00 AM EST - 05/23/2020 12:00:00 AM EST [facility] ([facility]) Extended Individual Psychotherapy - 45 min 0 12:00:00 AM EST [facility] ([facility]) Extended Individual Psychotherapy - 45 min 05/08/2020 12:00:00 AM EST - 05/08/2020 12:00:00 AM EST [facility] ([facility]) Extended Individual Psychotherapy - 45 min 0 12:00:00 AM EST [facility] ([facility]) Results ID Date Data Source [id number] 05/02/2020 09:56:00 AM EST [facility] Name Value Range Interpretation Code Description Data Nedra rce(s) Supporting Document(s) WHITE BLOOD COUNT 8.26 10^3/uL 4.00-10.50 N [facility] ealth RED BLOOD COUNT 4.91 10^6/uL 4.30-5.80 N [facility] th HEMOGLOBIN 13.8 G/DL 13.0-17.5 N [facility] HEMATOCRIT 41.2 % 41.0-53.0 N [facility] MCV 83.9 FL 80.0-100.0 N [facility] MCH 28.1 PG 27.0-34.0 N [facility] MCHC 33.5 G/DL 32-36 N [facility] RDW 14.5 % 11.5-14.5 N [facility] PLATELET COUNT 158 10^3/uL 130-400 N [facility] MPV 12.3 FL 8.7-13.2 N [facility] GRAN % (AUTO) 63.0 % 42.0-75.0 N [facility] LYMPH % (AUTO) 25.8 % 20.0-51.0 N [facility] MONO % (AUTO) 7.1 % 2.0-15.0 N [facility] EOS % (AUTO) 3.5 % 0.0-11.0 N [facility] BASO % (AUTO) 0.4 % 0.0-2.0 N [facility] IG % (AUTO) 0.2 % 1.00-5.00 [facility] IG # (AUTO) 0.0 10^3/uL <0.5 [facility] GRAN # (AUTO) 5.20 10^3/uL 1.50-6.50 N [facility] LYMPH # (AUTO) 2.1 k/uL 1.0-5.0 N [facility] MONO # (AUTO) 0.59 k/uL 0.20-1.50 N [facility] EOS # (AUTO) 0.29 10^3/uL 0.00-1.10 N [facility] BASO # (AUTO) 0.03 10^3/uL 0.00-0.20 N [facility] ID Date Data Source [id number] 05/02/2020 02:06:00 PM EST [facility] Name Value Range Interpretation Code Description Data Nedra rce(s) Supporting Document(s) RAPID PLASMA REAGIN NON-REACTIVE NONREACTIVE [facility] Test performed by charcoal methodology ID Date Data Source [id number] 05/02/2020 10:41:00 AM EST [facility] Has Patient Fasted For The Past [...] Supporting Document(s) SODIUM 139 MEQ/L 135-145 N [facility] POTASSIUM 4.9 MEQ/L 3.5-5.3 N [facility] CHLORIDE 109 MEQ/L 94-110 N [facility] CARBON DIOXIDE 30 MEQ/L 22-33 N [facility] ANION GAP 5 5-16 N [facility] BLOOD UREA NITRO 18 MG/DL 7-25 N [facility] CREATININE 0.9 MG/DL 0.6-1.4 N [facility] GFR > 90.0 ML/MIN [facility] Stage G1 - Normal or high kidney functi on The GFR is an estimate of the Glomerular Filtration Rate. It is an aid to assess a patient's renal function. It is not a conclusive diagnosis of kidney disease. GFR normal is >=90 The MDRD GFR calculation is considered valid between the ages of 18 and 75 years only. BUN/CREAT RATIO 20 8-36 N [facility] GLUCOSE 84 MG/DL 70-100 [facility] CA 8.9 MG/DL 8.7-10.5 [facility] BILIRUBIN,TOTAL 0.4 MG/DL 0.1-1.3 [facility] AST 45 U/L 5-40 H [facility] ALT 28 U/L 5-48 N [facility] ALKALINE PHOSPHATASE 50 U/L 40-140 N [facility] alth TOTAL PROTEIN 5.9 G/DL 5.9-8.3 N [facility] ALBUMIN 3.9 G/DL 3.0-5.1 N [facility] GLOBULIN 2.0 G/DL 1.5-3.5 N [facility] ALB/GLOB RATIO 2.0 G/DL 1.0-3.0 [facility] ID Date Data Source [id number] 05/02/2020 10:41:00 AM [facility] Has Patient Fasted For The Past 12 [...] Document(s) GLYCOSYLATED HGBA1C 4.7 % 4.1-6.5 N [facility] ID Date Data Source [id number] 05/02/2020 10:41:00 AM [facility] Has Patient Fasted For The Past 12 [...] Supporting Document(s) TRIGLYCERIDES 120 MG/DL 45-150 N [facility] CHOLESTEROL 166 MG/DL 125-200 N [facility] LDL CHOLESTEROL 72 MG/DL 50-130 N [facility] HDL CHOLESTEROL 70 MG/DL 39-96 [facility] CHOL/HDL RATIO 2.4 0-4.9 N [facility] ID Date Data Source [id number] 05/02/2020 10:41:00 AM [facility] Has Patient Fasted For The Past 12 [...] rce(s) Supporting Document(s) VITAMIN B12 620 PG/ML 211-1999 N [facility] ID Date Data Source [id number] 05/02/2020 10:41:00 AM [facility] Has Patient Fasted For The Past 12 [...] Supporting Document(s) FOLATE 11.67 NG/ML 3.40-24.00 N [facility] ID Date Data Source [id number] 05/02/2020 10:41:00 AM [facility] Has Patient Fasted For The Past 12 [...] Document(s) Vitamin D,25-HYDROXY 21.0 ng/ml 30-100 L [facility] Vitamin D Status Range De ficiency <20 ng/ml Insufficiency 20-29.9 ng/ml Sufficiency 30-100 ng/ml Toxicity >100 ng/ml Patients should not be tested for 72 hours post fluorescein dye angiography. A false elevation of result may occur. ID Date Data Source [id number] 05/02/2020 10:41:00 AM [facility] Has Patient Fasted For The Past 12 [...] Supporting Document(s) TSH 1.798 uIU/ML 0.470-4.200 N [facility] Patients should not be tested for 72 ho urs post fluorescein dye angiography. A false depression of result may occur. ID Date Data Source [id number] 04/30/2020 05:16:00 AM EST [facility] Name Value Range Interpretation Code Description Data Nedra rce(s) Supporting Document(s) SARS coronavirus 2 RNA [Presence] in Res piratory specimen by KOFFI with probe detection [facility] This lab was ordered by [facility] a nd reported by [facility]. ID Date Data Source [id number] 04/30/2020 04:47:19 AM [facility] Name Value Range Interpretation Code Description Data Nedra rce(s) Supporting Document(s) Progress Note [facility] [id number] [id number] [file] [id number] Procedure Social History Code Duration Value Status Description Data Source(s ) Smoking 06/13/2020 12:00:00 AM EST Unknown if ever smoked comp leted Unknown if ever smoked [facility] ([facility]) Smoking 06/02/2020 12:00:00 AM EST Unknown if ever smoked comp leted Unknown if ever smoked [facility] ([facility]) Smoking 05/30/2020 12:00:00 AM EST Unknown if ever smoked comp leted Unknown if ever smoked [facility] ([facility]) Smoking 05/23/2020 12:00:00 AM EST Unknown if ever smoked comp leted Unknown if ever smoked [facility] ([facility]) Smoking 05/08/2020 12:00:00 AM EST Unknown if ever smoked comp leted Unknown if ever smoked [facility] ([facility]) Vital Signs ID Date Data Source [id number] 04/30/2020 04:47:19 AM EST [facility] Name Value Range Interpretation Code Description Data Source(s) TRANSFER FROM [facility] ID Date Data Source [id number] 03/20/2020 06:39:00 PM EDT [facility] Name Value Range Interpretation Code Description Data Source(s) Weight Measurement Method 1 1 [facility] Weight (Calculated Kilograms) 64.95 64.95 [facility] Weight 2291.2 2291.2 [facility] pital Temperature Source 7 7 [facility] Temperature 98.1 98.1 [facility] spital Respiratory Effort 1 1 [facility] Respiratory Rate 20 20 [facility] Pulse Assessment Method 4 4 G [place] Pulse Rate 75 75 [facility] Height (Calculated Centimeters) 172.72 172. 72 [facility] Height 68 68 [facility] Blood Pressure 132/92 132/92 [facility] Body Mass Index (BMI) 21.7 21.7 [facility] Weight 2291.2 2291.2 [facility] Height 68 68 [facility]
[2020-07-12 20:07] VITALS: BP 124/81
[2020-07-12 20:50] LABS: CHLAMYDIA DNA AMPLIFICATION NEGATIVE (NEGATIVE); GC DNA AMPLIFICATION POSITIVE (NEGATIVE)
== END 2020-07-12 20:08 | disposition home or self-care (01) ==
LOC: M ED 18:56
DX: A54.01 Gonococcal cystitis and urethritis, unspecified (principal); F17.200 Nicotine dependence, unspecified, uncomplicated; F10.10 Alcohol abuse, uncomplicated
CPT/HCPCS: 81001; 87086; 87491; 87591; 96372; 99284; J0696

== ENCOUNTER 2020-08-13 04:25 | Emergency (ER) | payer OTHER ==
[~2020-08-13] VITALS: Ht 172.7 cm; Wt 65.8 kg
[~2020-08-13 04:25] MED LIST: DOXY100C37 PO
[2020-08-13] MEDS ORDERED: ONDANSETRON 4MG/2ML VIAL IV ONE (06:40)
[2020-08-13] MEDS ORDERED: NS 1,000 ML IV ONE (06:40)
[2020-08-13 06:58] LABS: ALT/SGPT 21 U/L (12-78); BILIRUBIN,DIRECT 0.4 MG/DL (0.0-0.2); BILIRUBIN,TOTAL 1.3 MG/DL (0.2-1.0); BLOOD UREA NITROGEN 14 MG/DL (7-18); CALCIUM LEVEL 8.7 MG/DL (8.5-10.1); CARBON DIOXIDE LEVEL 25 MEQ/L (21-32); CHLORIDE LEVEL 103 MEQ/L (98-107); CREATININE FOR GFR 0.95 MG/DL (0.70-1.30); GLOMERULAR FILTRATION RATE > 60.0 (>60); GLUCOSE, FASTING 125 MG/DL (70-100); LIPASE 80 U/L (73-393); POTASSIUM SERUM 3.6 MEQ/L (3.5-5.1); SODIUM LEVEL 139 MEQ/L (136-145)
[2020-08-13 07:14] LABS: BASO % 0.2 % (0.0-1.0); HEMATOCRIT 43.4 % (42.0-52.0); HEMOGLOBIN 14.4 g/dl (13.5-17.5); LYMPH # 1.2 10^3/uL (1.5-5.0); LYMPH % 9.4 % (24.0-44.0); MEAN CORPUSCULAR HEMOGLOBIN 26.8 pg (27.0-33.0); MEAN CORPUSCULAR HGB CONC 33.2 g/dl (32.0-36.5); MEAN CORPUSCULAR VOLUME 80.7 fl (80.0-96.0); MONO # 0.6 10^3/uL (0.0-0.8); MONO % 4.5 % (2.0-8.0); NEUTROPHILS # 10.8 10^3/uL (1.5-8.5); NEUTROPHILS % 85.3 % (36.0-66.0); PLATELET COUNT, AUTOMATED 170 10^3/uL (150-450); RED BLOOD COUNT 5.38 10^6/uL (4.30-6.10); WHITE BLOOD COUNT 12.7 10^3/uL (4.0-10.0)
[2020-08-13 08:08] VITALS: BP 138/86
== END 2020-08-13 08:12 | disposition home or self-care (01) ==
LOC: M ED 04:25
DX: K29.70 Gastritis, unspecified, without bleeding (principal); R11.2 Nausea with vomiting, unspecified; E86.0 Dehydration; F17.200 Nicotine dependence, unspecified, uncomplicated; F12.10 Cannabis abuse, uncomplicated
CPT/HCPCS: 80048; 80076; 81001; 83690; 85025; 96361; 96374; 99284; J2405

== ENCOUNTER 2021-03-27 04:04 | Emergency (ER) | payer OTHER ==
[~2021-03-27] VITALS: Ht 175.3 cm; Wt 72.7 kg
[~2021-03-27 04:04] MED LIST changes: +DOXY-443 PO; -DOXY100C37 PO
--- OUTSIDE RECORDS SUMMARY | 2021-03-27 04:08 | CCD ---
Author Organization Unknown Address [address] [place] [address] Phone [phone] Care Team Providers Care Tutoring Manager Name Role Phone Asmita Gonzalez Unavailable Unavailable Allergies Code Code System Name Reaction Severity Status Onset NKDA Medications Name Status Start Date Stop Date cholecalciferol (vitamin D3) 25 mcg (1,0 00 unit) tablet TAKE ONE TABLET BY MOUTH AT BEDTIME Completed doxycycline monohydrate 100 mg capsule Completed 12/13/2020 folic acid 1 mg tablet TAKE ONE TABLET BY MOUTH EVERY DAY Completed 11/24 naltrexone 50 mg tablet TAKE ONE TABLET BY MOUTH EVERY DAY Completed 11/24 sertraline 25 mg tablet TAKE ONE TABLET BY MOUTH EVERY DAY Completed 11/24 thiamine mononitrate (vitamin B1) 100 mg tablet TAKE ONE TABLET BY MOUTH EVERY DAY Completed 11/24 trazodone 50 mg tablet TAKE ONE TABLET BY MOUTH AT BEDTIME Completed Problems Name Status Onset Date Source Adult Health Examination Active 01/22/2021 Procedures None recorded. Results Lab Results Date Name Specimen Result Interpretation Description Value Range Status Address Lipid Panel, Serum Normal Cholesterol, Total 160 m g/dL <200 mg/dL Final [facility]: [address] [facility] Normal HDL Cholesterol 74 mg/dL > or = 40 m g/dL Final [facility]: [address] [facility] Normal Triglycerides 119 mg/dL <150 mg/dL F inal [facility]: [address] [facility] Normal LDL-cholesterol 65 mg/dL (calc) Final [facility]: [address] [facility] Normal Chol/hdlc Ratio 2.2 (calc) <5.0 (brent c) Final [facility]: [address] [facility] Normal Non HDL Cholesterol 86 mg/dL (calc) <130 mg/dL (calc) Final [facility]: [address] [facility] Aguila Final [facility]: [address] [facility] CMP, Serum or Plasma Normal Glucose 87 mg/dL 65-99 mg/dL [facility]: [address] [facility] Normal Urea Nitrogen (BUN) 20 mg/dL 7-25 mg /dL [facility]: [address] [facility] Normal Creatinine 1.10 mg/dL 0.60-1.35 mg/d L [facility]: [address] [facility] Normal eGFR Non-afr. [place] 87 mL/m in/1.73m2 > or = 60 mL/min/1.73m2 [facility]: [address] [facility] Normal eGFR 101 mL/m in/1.73m2 > or = 60 mL/min/1.73m2 [facility]: [address] [facility] BUN/creatinine Ratio not applicable (calc) 6-22 (calc) [facility]: [address] [facility] Normal Sodium 138 mmol/L 135-146 mmol/L [facility]: [address] [facility] Normal Potassium 4.2 mmol/L 3.5-5.3 mmol/L [facility]: [address] [facility] Normal Chloride 102 mmol/L 98-110 mmol/L [facility]: [address] [facility] Normal Carbon Dioxide 28 mmol/L 20-32 mmol/ L [facility]: [address] [facility] Normal Calcium 9.0 mg/dL 8.6-10.3 mg/dL [facility]: [address] [facility] Normal Protein, Total 7.1 g/dL 6.1-8.1 g/dL [facility]: [address] [facility] Normal Albumin 4.2 g/dL 3.6-5.1 g/dL [facility]: [address] [facility] Normal Globulin 2.9 g/dL (calc) 1.9-3.7 g/d L (calc) [facility]: [address] [facility] Normal Albumin/globulin Ratio 1.4 (calc) 1. 0-2.5 (calc) [facility]: [address] [place] High Bilirubin, Total 1.4 mg/dL 0.2-1.2 m g/dL Final [facility]: [address] [place] Normal Alkaline Phosphatase 55 U/L 36-130 U /L Final [facility]: [address] [place] Normal Ast 21 U/L 10-40 U/L Final [facility] [place]: [address] [place] Normal Alt 14 U/L 9-46 U/L Final [facility] [place]: [address], [place] Tsh Blood venous Normal Tsh 1.92 mIU/L 0.40-4.50 mIU /L Final [facility]: [address] [place] Past Encounters 01/22/2021 Adult Health Examination; Tobacco User Gonzalez Tian MD: [address] [place] [phone], Ph. 01/15/2021 Gonzalez Tian MD: [address] [place] [phone], Ph. 12/13/2020 Patient New to Provider; Elevated Blood-pressure Reading without Diagnosis of Hypertension Gonzalez Tian MD: [address] [place] [phone], Ph. Social History Tobacco Smoking Status Light Tobacco Smoker (1 pack per week ) Vaccine List None recorded. Plan of Care Reminders Provider Appointments None recorded. Lab None recorded. Referral None recorded. Procedures None recorded. Surgeries None recorded. Imaging None recorded. Vitals 01/22/2021 03:20PM ANNUAL EXAM Height Weight BMI Blood Pressure 68 in 146 lbs 4 oz 22.2 kg/m2 123/83 mm[Hg] 12/13/2020 09:20AM NEW PATIENT (13yrs - OLDER) Weight Blood Pressure 150 lbs 4 oz 142/98 mm[Hg]
[2021-03-27] MEDS ORDERED: DEXTROSE 50% 50 ML SYRINGE As Ordered ONE (04:09)
--- OUTSIDE RECORDS SUMMARY | 2021-03-27 04:09 | CCD ---
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 Name Role Phone Justo Tian MD Unavailable Unavailable Justo Tian MD Unavailable Unavailable Justo Tian MD Unavailable Unavailable Justo Tian MD Unavailable Unavailable Justo Tian MD Unavailable Unavailable Justo Tian MD Unavailable Unavailable Justo Tian MD Unavailable Unavailable Justo Tian MD Unavailable Unavailable Justo Tian MD Unavailable Unavailable Justo Tian MD Unavailable Unavailable Justo Tian MD Unavailable Unavailable Justo Tian MD Unavailable Unavailable Justo Tian MD Unavailable Unavailable Justo Tian MD Unavailable Unavailable Justo Tian MD Unavailable Unavailable Justo Tian MD Unavailable Unavailable Justo Tian MD Unavailable Unavailable Justo Tian MD Unavailable Unavailable Justo Tian MD Unavailable Unavailable Justo Tian MD Unavailable Unavailable Justo Tian MD Unavailable Unavailable Justo Tian MD Unavailable Unavailable Justo Tian MD Unavailable Unavailable Justo Tian MD Unavailable Unavailable Justo Tian MD Unavailable Unavailable Justo Tian MD Unavailable Unavailable Justo Tian MD Unavailable Unavailable Justo Tian MD Unavailable Unavailable Justo Tian MD Unavailable Unavailable Justo Tian MD Unavailable Unavailable Justo Tian MD Unavailable Unavailable Justo Tian MD Unavailable Unavailable Justo Tian MD Unavailable Unavailable Justo Tian MD Unavailable Unavailable Justo Tian MD Unavailable Unavailable Justo Tian MD Unavailable Unavailable Justo Tian MD Unavailable Unavailable Justo Tian MD Unavailable Unavailable Justo Tian MD Unavailable Unavailable Justo Tian MD Unavailable Unavailable Justo Tian MD Unavailable Unavailable Justo Tain MD Unavailable Unavailable Justo Tian MD Unavailable Unavailable Justo Tian MD Unavailable Unavailable Justo Tian MD Unavailable Unavailable Justo Tian MD Unavailable Unavailable Justo Tian MD Unavailable Unavailable Justo Tian MD Unavailable Unavailable Justo Tian MD Unavailable Unavailable Justo Tian MD Unavailable Unavailable Justo Tian MD Unavailable Unavailable Justo Tian MD Unavailable Unavailable Justo Tian MD Unavailable Unavailable Justo Tian MD Unavailable Unavailable Justo Tian MD Unavailable Unavailable Justo Tian MD Unavailable Unavailable Justo Tian MD Unavailable Unavailable Justo Tian MD Unavailable Unavailable Justo Tian MD Unavailable Unavailable Justo Tian MD Unavailable Unavailable Justo Tian MD Unavailable Unavailable Justo Tian MD Unavailable Unavailable Justo Tian MD Unavailable Unavailable Justo Tian MD Unavailable Unavailable Justo Tian MD Unavailable Unavailable Justo Tian MD Unavailable Unavailable Justo Tian MD Unavailable Unavailable Justo Tian MD Unavailable Unavailable Justo Tian MD Unavailable Unavailable Justo Tian MD Unavailable Unavailable Justo Tian MD Unavailable Unavailable Justo Tian MD Unavailable Unavailable Justo Tian MD Unavailable Unavailable Justo Tian MD Unavailable Unavailable Justo Tian MD Unavailable Unavailable Justo Tian MD Unavailable Unavailable Justo Tian MD Unavailable Unavailable Justo Tian MD Unavailable Unavailable Justo Tian MD Unavailable Unavailable Justo Tian MD Unavailable Unavailable Justo Tian MD Unavailable Unavailable Justo Tian MD Unavailable Unavailable Justo Tian MD Unavailable Unavailable Justo Tian MD Unavailable Unavailable uJsto Tian MD Unavailable Unavailable Justo Tian MD Unavailable Unavailable Justo Tian MD Unavailable Unavailable Justo Tian MD Unavailable Unavailable Justo Tian MD Unavailable Unavailable Justo Tian MD Unavailable Unavailable Justo Tian MD Unavailable Unavailable Justo Tian MD Unavailable Unavailable Justo Tian MD Unavailable Unavailable Toya, Michael SPACE TECHNOLOGIST Unavailable Toya, Michael SPACE TECHNOLOGIST Unavailable Toya, Michael SPACE TECHNOLOGIST Unavailable Althouse, Mercedes SPACE TECHNOLOGIST Unavailable Unavailable Praveena Levy Unavailable Maryjo Acharya Unavailable Unavailable Anabella DONNELLY MD Unavailable Unavailable [...] Unavailable CONY, Anabella HERNANDEZ MD Unavailable Unavailable MACQUEEN, AMRIK SPACE TECHNOLOGIST Unavailable Unavailable MACQUEEN, AMRIK SPACE TECHNOLOGIST Unavailable Unavailable MACQUEEN, AMRIK SPACE TECHNOLOGIST Unavailable Unavailable MACQUEEN, AMRIK SPACE TECHNOLOGIST Unavailable Unavailable MACQUEEN, AMRIK SPACE TECHNOLOGIST Unavailable Unavailable MACQUEEN, AMRIK SPACE TECHNOLOGIST Unavailable Unavailable MACQUEEN, AMRIK SPACE TECHNOLOGIST Unavailable Unavailable MACQUEEN, AMRIK SPACE TECHNOLOGIST Unavailable Unavailable MACQUEEN, AMRIK SPACE TECHNOLOGIST Unavailable Unavailable MACQUEEN, AMRIK SPACE TECHNOLOGIST Unavailable Unavailable SYSTEM, NOT IN PROVIDER Unavailable Unavailable Colon, Candido Unavailable Unavailable Colon, Candido Unavailable Unavailable Colon, Candido Unavailable Unavailable Colon, Candido Unavailable Unavailable Re-disclosure Warning The records that [...] is protected by Article 27-F of the [facility] Public Health law. If you continue you may have access to information: Regarding HIV / AIDS; Provided by facilities licensed or operated by the [facility] Office of Mental Health; or Provided by the [facility] Office for People With Developmental Disabilities. If such information is present, then the following [facility] mandated warning applies: This information has [...] law may result in a fine or intermediate sentence or both. A general authorization for the release of medical or other information is NOT sufficient authorization for further disc losure. Allergies and Adverse Reactions Type Description Substance Reaction Status Data Source(s ) Drug allergy No Known Allergies No Known Allergies [facility] Drug allergy Drug allergy No Known Allergies [facility] Encounters Encounter Providers Location Date Indications Data Source(s ) Gonzalez Tian MD: [address] [place] [phone], Ph. Attender: Gonzalez Tian MD [facility] Medical 01/22/2021 12:00:00 AM EDT [facility] ([facility]) Gonzalez Tian MD: [address] [place] [phone], Ph. Attender: Gonzalez Tian MD [facility] Medical 01/15/2021 12:00:00 AM EDT [facility] ([facility]) Gonzalez Tian MD: [address] [place] [phone], Ph. Attender: Gonzalez Tian MD [facility] Medical 12/13/2020 12:00:00 AM EDT [facility] ([facility]) Gonzalez Tian MD: [address] [place] [phone], Ph. Attender: Gonzalez Tian MD [facility] Medical 12/13/2020 12:00:00 AM EDT [facility] ([facility]) Brief Individual Psychotherapy - 30 min Attender: Maryjo castro [facility] 06/13/2020 12:00:00 PM EST - 06/13/2020 12:00:00 PM EST [facility] ([facility]) Attender: Maryjo Marck 06/13/2020 12:00:00 AM EST [facility] ([facility]) Psychiatric Diagnostic Evaluation (Non-Medical) Attender: Leticia mccormick [facility] 06/02/2020 10:00:00 AM EST - 06/02/2020 10:00:00 AM EST [facility] ([facility]) Attender: Maryjo Marck 06/02/2020 12:00:00 AM EST [facility] ([facility]) Telemed Diagnostic Eval Attender: AMRIK JOHNSON NP [facility] 05/30/2020 10:00:00 AM EST - 05/30/2020 10:00:00 AM EST [facility] ([facility]) Attender: AMRIK JOHNSON NP 05/30/2020 12:00:00 AM EST [facility] ([facility]) Extended Individual Psychotherapy - 45 min Attender: Maryjo Marck [facility] 05/23/2020 11:00:00 AM EST - 05/23/2020 11:00:00 AM EST [facility] ([facility]) Attender: Maryjo Marck 05/23/2020 12:00:00 AM EST [facility] ([facility]) Extended Individual Psychotherapy - 45 min Attender: Cheri Levy [facility] 05/08/2020 03:00:00 AM EST - 05/08/2020 03:00:00 AM EST [facility] ([facility]) Attender: Praveena Levy 05/08/2020 12:00:00 AM EST [facility] ([facility]) Outpatient Referrer: KARRIE KEY [id number] 04/30/2020 04:4 4:00 AM EST psych [facility] psych Outpatient Attender: Mercedes Diaz PAdmitter: Candido ColonConsultant: Candido Colon 04/30/2020 02:00:00 AM EST [facility] Inpatient Attender: Candido ColonAdmitter: Candido Colon 04/30/2020 02:00:00 AM EST - 05/03/2020 12:14:00 PM EST [facility] Patient discharged. Outpatient Attender: Mercedes Murciamitter: Candido ColonConsultant: Candido Colon 04/30/2020 02:00:00 AM EST [facility] Outpatient Attender: Michael Pittman NPAdmitter: Candido ColonConsultant: Candido Colon 04/30/2020 02:00:00 AM EST [facility] Outpatient Attender: Mercedes Murciamitter: Candido ColonConsultant: Candido Colon 04/30/2020 02:00:00 AM EST [facility] Inpatient Attender: MARY DONNELLY MDAdmitter: MARY DONNELLY MD [facility] 03/20/2020 02:05:00 PM EDT - 03/20/2020 06:39:00 PM EDT F10 F1020 [facility] F1920 F1020 Patient discharged. Inpatient Attender: MARY DONNELLY MDAdmitter: MARY DONNELLY MD [facility] 03/20/2020 09:00:00 AM EDT - 03/20/2020 05:00:00 PM EDT F1920 [facility] F1920 Medications Medication Brand Name Start Date Product Form Dose Route Admi nistrative Instructions Pharmacy Instructions Status Indications Reaction Description Data Source(s) 100 mg 07/13/2020 12:00:00 AM EST capsule 20 TAKE ONE CAPSULE BY MOUTH EVERY 12 HOURS TAKE ONE CAPSULE BY MOUTH EVERY 12 HOURS SOLD: 07/13/2020 [facility] 25 mg 05/04/2020 12:00:00 AM EST tablet 30 TAKE ONE TABLET BY MOUTH EVERY DAY TAKE ONE TABLET BY MOUTH EVERY DAY SOLD: 05/04/2020 [facility] 25 mcg (1,000 unit) 05/04/2020 12:00:00 AM EST tablet 30 TAKE ONE TABLET BY MOUTH AT BEDTIME TAKE ONE TABLET BY MOUTH AT BEDTIME SOLD: 05/04/2020 [facility] 50 mg 05/04/2020 12:00:00 AM EST tablet 30 TAKE ONE TABLET BY MOUTH AT BEDTIME TAKE ONE TABLET BY MOUTH AT BEDTIME SOLD: 05/04/2020 [facility] 1 mg 05/04/2020 12:00:00 AM EST tablet [...] EVERY DAY SOLD: 05/04/2020 [facility] Cholecalciferol 1000 UNT Oral Tablet cho lecalciferol (vitamin D3) 25 mcg (1,000 unit) tablet TAKE ONE TABLET BY MOUTH AT BEDTIME cholecalciferol (vitamin D3) 25 mcg (1,000 unit) tablet TAKE ONE TABLET BY MOUTH AT BEDTIME completed cholecalciferol 0.025 MG Oral Ta blet KATHRYN ([facility]) Folic Acid 1 MG Oral Tablet folic acid 1 mg tablet TAKE ONE TABLET BY MOUTH EVERY DAY folic acid 1 mg tablet TAKE ONE TABLET BY MOUTH EVERY DAY completed folic acid 1 MG Oral Tablet ATHRachel KEYS ([facility]) Folic Acid 1 MG Oral Tablet folic acid 1 mg tablet TAKE ONE TABLET BY MOUTH EVERY DAY folic acid 1 mg tablet TAKE ONE TABLET BY MOUTH EVERY DAY completed folic acid 1 MG Oral Tablet KUNAL KEYS ([facility]) Naltrexone hydrochloride 50 MG Oral Tabl et naltrexone 50 mg tablet TAKE ONE TABLET BY MOUTH EVERY DAY naltrexone 50 mg tablet TAKE ONE TABLET BY MOUTH EVERY DAY completed naltrexone hydro chloride 50 MG Oral Tablet [facility] ([facility]) Thiamine 100 MG Oral Tablet thiamine mon onitrate (vitamin B1) 100 mg tablet TAKE ONE TABLET BY MOUTH EVERY DAY thiamine mononitrate (vitamin B1) 100 mg tablet TAKE ONE TABLET BY MOUTH EVERY DAY com pleted thiamine 100 MG Oral Tablet [facility] ([facility]) Sertraline 25 MG Oral Tablet sertraline 25 mg tablet TAKE ONE TABLET BY MOUTH EVERY DAY sertraline 25 mg tablet TAKE ONE TABLET BY MOUTH EVERY DAY completed sertraline 25 MG Oral Tablet [facility] ([facility]) Thiamine 100 MG Oral Tablet thiamine mon onitrate (vitamin B1) 100 mg tablet TAKE ONE TABLET BY MOUTH EVERY DAY thiamine mononitrate (vitamin B1) 100 mg tablet TAKE ONE TABLET BY MOUTH EVERY DAY com pleted thiamine 100 MG Oral Tablet [facility] ([facility]) Cholecalciferol 1000 UNT Oral Tablet cho lecalciferol (vitamin D3) 25 mcg (1,000 unit) tablet TAKE ONE TABLET BY MOUTH AT BEDTIME cholecalciferol (vitamin D3) 25 mcg (1,000 unit) tablet TAKE ONE TABLET BY MOUTH AT BEDTIME completed cholecalciferol 0.025 MG Oral Ta blet KATHRYN ([facility]) Doxycycline Monohydrate 100 MG Oral Caps ule doxycycline monohydrate 100 mg capsule doxycycline monohydrate 100 mg capsule completed doxycycline monohydrate 100 MG Oral Capsule K[facility] ([facility]) Trazodone Hydrochloride 50 MG Oral Table t trazodone 50 mg tablet TAKE ONE TABLET BY MOUTH AT BEDTIME trazodone 50 mg tablet TAKE ONE TABLET BY MOUTH AT BED TIME completed trazodone hydr ochloride 50 MG Oral Tablet [facility] ([facility]) Naltrexone hydrochloride 50 MG Oral Tabl et naltrexone 50 mg tablet TAKE ONE TABLET BY MOUTH EVERY DAY naltrexone 50 mg tablet TAKE ONE TABLET BY MOUTH EVERY DAY completed naltrexone hydro chloride 50 MG Oral Tablet [facility] ([facility]) Sertraline 25 MG Oral Tablet sertraline 25 mg tablet TAKE ONE TABLET BY MOUTH EVERY DAY sertraline 25 mg tablet TAKE ONE TABLET BY MOUTH EVERY DAY completed sertraline 25 MG Oral Tablet [facility] ([facility]) Trazodone Hydrochloride 50 MG Oral Table t trazodone 50 mg tablet TAKE ONE TABLET BY MOUTH AT BEDTIME trazodone 50 mg tablet TAKE ONE TABLET BY MOUTH AT BED TIME completed trazodone hydr ochloride 50 MG Oral Tablet [facility] ([facility]) Doxycycline Monohydrate 100 MG Oral Caps ule doxycycline monohydrate 100 mg capsule doxycycline monohydrate 100 mg capsule completed doxycycline monohydrate 100 MG Oral Capsule [facility] ([facility]) Insurance Providers Payer name Policy type / Coverage type Policy ID Covered green party ID Covered green party's relationship to rodriguez Policy Rodriguez Plan Information MEDICAID [id number] Admitting [id number] Emedny [id number] SP [id number] [facility] [id number] SP [id number] SELF PAY MEDICAID [id number] [facility] COMMUNITY PLAN [facility] [id number] SP [id number] MEDICAID [id number] SP [id number] [facility] COMMUNITY PLAN [facility] [id number] SP [id number] EMEDNY [id number] SP [id number] SELF PAY ONLY [id number] SP [id number] Problems, Conditions, and Diagnoses Code Display Name Description Problem Type Effective Dates Data Source(s) psych psych Diagnosis 04/30/2020 04:44:00 AM [facility] M25.511 Pain in right shoulder M25.511 - Pain in right shoulde r Diagnosis 04/30/2020 02:00:00 AM [facility] R45.851 Suicidal ideations R45.851 - Suicidal ideations Diagno sis 04/30/2020 02:00:00 AM [facility] F41.9 Anxiety disorder, unspecified F41.9 - Anxiety di sorder, unspecified Diagnosis 04/30/2020 02:00:00 AM [facility] F17.200 Nicotine dependence, unspecified, uncomp licated F17.200 - Nicotine dependence, unspecified, uncomplicated Diagnosis 04/30/2020 02:00:00 A M [facility] F10.20 Alcohol dependence, uncomplicated F10.20 - Alcohol dependence, uncomplicated Diagnosis 04/30/2020 02:00:00 AM [facility] F32.9 Major depressive disorder, single episod e, unspecified F32.9 - Major depressive disorder, single episode, unspecified Diagnosis 04/30 02:00:00 AM [facility] Z53.29 Procedure and treatment not carried out because of patient's decision for other reasons PROC/TRTMT NOT CRD OUT BEC PT DECISION FOR OTH REASONS Diagn osis 03/20/2020 09:00:00 AM EDT [facility] 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) F15.10 Other stimulant abuse, uncomplicated Sti mulant Use Disorder, Mild: Other or unspecified stimulant Condition 06/13/2020 12:00:00 AM EST [facility] ([facility]) F10.20 Alcohol dependence, uncomplicated Alcohol Use Di sorder, Moderate Condition 06/13/2020 12:00:00 AM EST [facility] ([facility]) F33.2 Major depressive disorder, recurrent 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 Major Depressive Disorder, Recurrent episode, Severe Condition 0 06/13/2020 12:00:00 AM EST [facility] ([facility]) Surgeries/Procedures Procedure Description Date Indications Data Source(s) Brief Individual Psychotherapy - 30 min 06/13/2020 12:00:00 AM EST - 06/13/2020 12:00:00 AM EST [facility] ([facility]) Brief Individual Psychotherapy - 30 min 06/13/2020 12: 00:00 AM EST [facility] ([facility]) Psychiatric Diagnostic Evaluation (Non-Medical) 06/02/2020 12:00:00 AM EST - 06/02/2020 12:00:00 AM EST [facility] ([facility]) Psychiatric Diagnostic Evaluation (Non-Medical) 2020 12:00:00 AM EST [facility] ([facility]) Telemed Diagnostic Eval 05/30/2020 12:00 :00 AM EST - 05/30/2020 12:00:00 AM EST [facility] ([facility]) Telemed Diagnostic Eval 05/30/2020 12:00:00 AM EST [facility] ([facility]) Extended Individual Psychotherapy - 45 min 05/23/2020 12:00:00 AM EST - 05/23/2020 12:00:00 AM EST [facility] ([facility]) Extended Individual Psychotherapy - 45 min 0 12:00:00 AM EST [facility] ([facility]) Extended Individual Psychotherapy - 45 min 05/08/2020 12:00:00 AM EST - 05/08/2020 12:00:00 AM EST [facility] ([facility]) Extended Individual Psychotherapy - 45 min 0 12:00:00 AM EST [facility] ([facility]) Results ID Date Data Source [id number] 01/18/2021 12:00:00 AM EDT [facility]) Name Value Range Interpretation Code Description Data Nedra rce(s) Supporting Document(s) Thyrotropin [Units/volume] in Serum or Plasma 1.92 mIU/L 0.40-4.50 Tsh [facility]) ID Date Data Source [id number] 01/18/2021 12:00:00 AM EDT [facility]) Name Value Range Interpretation Code Description Data Nedra rce(s) Supporting Document(s) Glucose [Mass/volume] in Serum or Plasma 87 mg/dL 65-99 Glucose [facility] ([facility]) Urea nitrogen [Mass/volume] in Serum or Plasma 20 mg/dL 7-25 Urea Nitrogen (BUN) [facility] ([facility]) Creatinine [Mass/volume] in Serum or Plasma 1.10 mg/dL 0.60-1.35 Creatinine [facility] ([facility]) Glomerular filtration rate/1.73 sq M.pre dicted among non-blacks [Volume Rate/Area] in Serum, Plasma or Blood by Creatinine-based formula (CKD-EPI) 87 mL/min/1.73m2 > or = 60 eGFR Non-afr. Mongolian K[facility] ([facility]) Urea nitrogen/Creatinine [Mass Ratio] in Serum or Plasma not applic able 6-22 BUN/creatinine Ratio [facility] ([facility]) Glomerular filtration rate/1.73 sq M.pre dicted among blacks [Volume Rate/Area] in Serum, Plasma or Blood by Creatinine-based formula (CKD-EPI) 101 mL/min/1.73m2 > or = 60 eGFR [facility]HRYN ([facility]) Potassium [Moles/volume] in Serum or Plasma 4.2 mmol/L 3.5-5.3 Potassium [facility] ([facility]) Sodium [Moles/volume] in Serum or Plasma 138 mmol/L 135-146 Sodium [facility] ([facility]) Chloride [Moles/volume] in Serum or Plasma 102 mmol/L 98-110 Chloride [facility] ([facility]) Calcium [Mass/volume] in Serum or Plasma 9.0 mg/dL 8.6-10.3 Calcium [facility] ([facility]) Carbon dioxide, total [Moles/volume] in Serum or Plasma 28 mmol/L 20-32 Carbon Dioxide [facility] ([facility]) Albumin/Globulin [Mass Ratio] in Serum or Plasma 1.4 (calc) 1.0-2 .5 Albumin/globulin Ratio [facility] ([facility]) Albumin [Mass/volume] in Serum or Plasma 4.2 g/dL 3.6-5.1 Albumin [facility] ([facility]) Globulin [Mass/volume] in Serum by calculation 2.9 g/dL_(calc) 1.9- 3.7 Globulin [facility] ([facility]) Protein [Mass/volume] in Serum or Plasma 7.1 g/dL 6.1-8.1 Protein, Total [facility] ([facility]) Alanine aminotransferase [Enzymatic activity/volume] in Seru m or Plasma 14 U/L 9-46 Alt K[facility] ([facility]) Alkaline phosphatase [Enzymatic activity/volume] in Serum or Plasma 55 U/L 36-130 Alkaline Phosphatase [facility] ([facility]) Aspartate aminotransferase [Enzymatic activity/volume] in Serum or Plasma 21 U/L 10-40 Ast [facility] ([facility]) Bilirubin.total [Mass/volume] in Serum or Plasma 1.4 mg/dL 0.2-1.2 Above high normal Bilirubin, Total [facility] ([facility]) ID Date Data Source [id number] 01/18/2021 12:00:00 AM EDT [facility] ([facility]) Name Value Range Interpretation Code Description Data Nedra rce(s) Supporting Document(s) Cholesterol [Mass/volume] in Serum or Plasma 160 mg/dL <200 Cholesterol, Total [facility] ([facility]) Cholesterol in LDL [Mass/volume] in Serum or Plasma by calculation 65 mg/dL_(calc) LDL-cholesterol [facility] ([facility]) Cholesterol in HDL [Mass/volume] in Serum or Plasma 74 mg/dL > or = 40 HDL Cholesterol [facility] ([facility]) Cholesterol.total/Cholesterol in HDL [Mass Ratio] in Serum o r Plasma 2.2 (calc) <5.0 Chol/hdlc Ratio [facility] ([facility]) Triglyceride [Mass/volume] in Serum or Plasma 119 mg/dL <150 Triglycerides [place] ([facility]) Service comment [place] [facility] ([facility]) Cholesterol non HDL [Mass/volume] in Serum or Plasma 86 mg/dL_(calc ) <130 Non HDL Cholesterol [place] ([facility]) ID Date Data Source [id number] 05/02/2020 09:56:00 AM EST [facility] Name Value Range Interpretation Code Description Data Nedra rce(s) Supporting Document(s) WHITE BLOOD COUNT 8.26 10^3/uL 4.00-10.50 [facility] RED BLOOD COUNT 4.91 10^6/uL 4.30-5.80 [facility] HEMOGLOBIN 13.8 G/DL 13.0-17.5 [facility] HEMATOCRIT 41.2 % 41.0-53.0 [facility] MCV 83.9 FL 80.0-100.0 [facility] MCH 28.1 PG 27.0-34.0 [facility] MCHC 33.5 G/DL 32-36 [facility] RDW 14.5 % 11.5-14.5 [facility] PLATELET COUNT 158 10^3/uL 130-400 [facility] MPV 12.3 FL 8.7-13.2 [facility] GRAN % (AUTO) 63.0 % 42.0-75.0 [facility] LYMPH % (AUTO) 25.8 % 20.0-51.0 [facility] MONO % (AUTO) 7.1 % 2.0-15.0 [facility] EOS % (AUTO) 3.5 % 0.0-11.0 [facility] BASO % (AUTO) 0.4 % 0.0-2.0 [facility] IG % (AUTO) 0.2 % 1.00-5.00 [facility] IG # (AUTO) 0.0 10^3/uL <0.5 [facility] GRAN # (AUTO) 5.20 10^3/uL 1.50-6.50 [facility] LYMPH # (AUTO) 2.1 k/uL 1.0-5.0 [facility] MONO # (AUTO) 0.59 k/uL 0.20-1.50 [facility] EOS # (AUTO) 0.29 10^3/uL 0.00-1.10 [facility] BASO # (AUTO) 0.03 10^3/uL 0.00-0.20 [facility] ID Date Data Source [id number] 05/02/2020 02:06:00 PM [facility] Name Value Range Interpretation Code Description Data Nedra rce(s) Supporting Document(s) RAPID PLASMA REAGIN NON-REACTIVE NONREACTIVE [facility] Test performed by charcoal methodology ID Date Data Source [id number] 05/02/2020 10:41:00 AM [facility] Hot Potato Has Patient Fasted For The Past 12 [...] rce(s) Supporting Document(s) SODIUM 139 MEQ/L 135-[address] [facility] POTASSIUM 4.9 MEQ/L 3.5-5.[address] [facility] CHLORIDE 109 MEQ/L 94-[address] [facility] CARBON DIOXIDE 30 MEQ/L 22-33 N [facility] ANION GAP 5 5-16 [facility] BLOOD UREA NITRO 18 MG/DL 7-25 N [facility] CREATININE 0.9 MG/DL 0.6-1.4 N [facility] GFR > 90.0 ML/MIN [facility] Stage G1 - Normal or high kidney functi on The GFR is an estimate of the Glomerular Filtration Rate. It is an aid to assess a patient's renal function. It is not a conclusive diagnosis of kidney disease. GFR normal is >=90 The MDRD GFR calculation is considered valid between the ages of 18 and 75 years only. BUN/CREAT RATIO 20 8-[address] [facility] GLUCOSE 84 MG/DL 70-[address] [facility] CA 8.9 MG/DL 8.7-10.[address] [facility] BILIRUBIN,TOTAL 0.4 MG/DL 0.1-1.[address] [facility] AST 45 U/L 5-40 H [facility] ALT 28 U/L 5-[address] [facility] ALKALINE PHOSPHATASE 50 U/L 40-140 [facility] TOTAL PROTEIN 5.9 G/DL 5.9-8.[address] [facility] ALBUMIN 3.9 G/DL 3.0-5.[address] [facility] GLOBULIN 2.0 G/DL 1.5-3.[address] [facility] ALB/GLOB RATIO 2.0 G/DL 1.0-3.[address] [facility] ID Date Data Source [id number] 05/02/2020 10:41:00 AM [facility] Has Patient Fasted For The Past 12 [...] Document(s) GLYCOSYLATED HGBA1C 4.7 % 4.1-6.5 N [facility] ID Date Data Source [id number] 05/02/2020 10:41:00 AM [facility] [employer] Has Patient Fasted For The Past 12 [...] Supporting Document(s) TRIGLYCERIDES 120 MG/DL 45-150 [facility] CHOLESTEROL 166 MG/DL 125-200 [facility] LDL CHOLESTEROL 72 MG/DL 50-130 [facility] HDL CHOLESTEROL 70 MG/DL 39-96 [facility] CHOL/HDL RATIO 2.4 0-4.9 [facility] ID Date Data Source [id number] 05/02/2020 10:41:00 AM [facility] [employer] Has Patient Fasted For The Past 12 [...] Document(s) VITAMIN B12 620 PG/ML -1999 [facility] ID Date Data Source [id number] 05/02/2020 10:41:00 AM [facility] [employer] Has Patient Fasted For The Past 12 [...] Supporting Document(s) FOLATE 11.67 NG/ML 3.40-24.00 [facility] ID Date Data Source [id number] 05/02/2020 10:41:00 AM EST [facility] Has Patient Fasted For The Past [...] Document(s) Vitamin D,25-HYDROXY 21.0 ng/ml 30-100 [facility] Vitamin D Status Range De ficiency <20 ng/ml Insufficiency 20-29.9 ng/ml Sufficiency 30-100 ng/ml Toxicity >100 ng/ml Patients should not be tested for 72 hours post fluorescein dye angiography. A false elevation of result may occur. ID Date Data Source [id number] 05/02/2020 10:41:00 [facility] For [facility] [...] Supporting Document(s) TSH 1.798 uIU/ML 0.470-4.200 [facility] Patients should not be tested for 72 ho urs post fluorescein dye angiography. A false depression of result may occur. ID Date Data Source [id number] 04/30/2020 05:16:00 AM EST [facility] Name Value Range Interpretation Code Description Data Nedra rce(s) Supporting Document(s) SARS coronavirus 2 RNA [Presence] in Res piratory specimen by KOFFI with probe detection [facility] This lab was ordered by [facility] a nd reported by [facility]. ID Date Data Source [id number] 04/30/2020 04:47:19 AM EST [facility] Name Value Range Interpretation Code Description Data Nedra rce(s) Supporting Document(s) Progress Note [facility] [id number] [file] [id number] Procedure Social History Code Duration Value Status Description Data Source(s ) Smoking 06/13/2020 12:00:00 AM EST Unknown if ever smoked comp leted Unknown if ever smoked [facility] ([facility]) Smoking 06/02/2020 12:00:00 AM EST Unknown if ever smoked comp leted Unknown if ever smoked [facility] ([facility]) Smoking 05/30/2020 12:00:00 AM EST Unknown if ever smoked comp leted Unknown if ever smoked [facility] ([facility]) Smoking 05/23/2020 12:00:00 AM EST Unknown if ever smoked comp leted Unknown if ever smoked [facility] ([facility]) Smoking 05/08/2020 12:00:00 AM EST Unknown if ever smoked comp leted Unknown if ever smoked [facility] ([facility]) Vital Signs ID Date Data Source UNK Name Value Range Interpretation Code Description Data Source(s) Body weight 2340 [oz_av] 2340 [oz_av] [facility] ([facility]) Diastolic blood pressure 83 mm[Hg] 83 mm[Hg] [place] ([facility]) Body height 68 [in_i] 68 [in_i] [place] ([facility]) Body mass index (BMI) [Ratio] 22.2 kg/m2 22.2 k g/m2 [facility] ([facility]) Systolic blood pressure 123 mm[Hg] 123 mm[Hg] [facility] ([facility]) Diastolic blood pressure 98 mm[Hg] 98 mm[Hg] [facility] ([facility]) Systolic blood pressure 142 mm[Hg] 142 mm[Hg] [facility] Body weight 2404 [oz_av] 2404 [oz_av] [facility] ([facility]) Diastolic blood pressure 98 mm[Hg] 98 mm[Hg] [facility] ([facility]) Systolic blood pressure 142 mm[Hg] 142 mm[Hg] [facility] Body weight 2404 [oz_av] 2404 [oz_av] [facility] ([facility]) ID Date Data Source [id number] 04/30/2020 04:47:19 AM [facility] Name Value Range Interpretation Code Description Data Source(s) TRANSFER FROM [facility] ID Date Data Source [id number] 03/20/2020 06:39:00 PM EDT [facility] spital Name Value Range Interpretation Code Description Data Source(s) Weight Measurement Method 1 1 [facility] Weight (Calculated Kilograms) 64.95 64.95 [facility] Weight 2291.2 2291.2 [facility] pital Temperature Source 7 7 [facility] Temperature 98.1 98.1 [facility] spital Respiratory Effort 1 1 [facility] Respiratory Rate 20 20 [facility] Pulse Assessment Method [address] [facility] (Calculated Centimeters) 172.72 172. 72 [facility] Height 68 68 [facility] Blood Pressure 132/92 132/92 [facility] Body Mass Index (BMI) 21.7 21.7 [facility] Weight 2291.2 2291.2 [facility]ital [facility] 68 [facility] Planned Activity Planned Date Details Description Data Source (s) Trazodone Hydrochloride 50 MG Oral Tablet [facility]) Thiamine 100 MG Oral Tablet [facility]) Sertraline 25 MG Oral Tablet [facility]) [facility]ide [facility] Doxycycline Monohydrate 100 [facility] Cholecalciferol 1000 UNT [facility] Trazodone Hydrochloride 50 MG Oral Tablet [facility]) Thiamine 100 MG Oral Tablet [facility]) Sertraline 25 MG Oral Tablet [facility]) Naltrexone hydrochloride 50 MG Oral Tablet [facility] ([facility]) Folic Acid 1 MG Oral Tablet [facility] ([facility]) Doxycycline Monohydrate 100 MG Oral Capsule [facility] ([facility]) Cholecalciferol 1000 UNT Oral Tablet [facility] ([facility])
[2021-03-27] MEDS ORDERED: DEXTROSE 50% 50 ML SYRINGE IV ONE (04:10)
[2021-03-27] MEDS ORDERED: NS 1,000 ML IV ONE (04:15)
[2021-03-27] MEDS ORDERED: MULTIVITAMIN -ADULT INJECTION 10 ML, THIAMINE INJection 100 MG, FOLIC ACID 1 MG in NS 1... IV ONE (04:15)
[2021-03-27] MEDS ORDERED: ONDANSETRON 4MG/2ML VIAL IV ONE (04:20)
[2021-03-27 04:35] LABS: BASO % 0.2 % (0.0-1.0); HEMATOCRIT 42.1 % (42.0-52.0); HEMOGLOBIN 14.3 g/dl (13.5-17.5); LYMPH # 1.1 10^3/uL (1.5-5.0); LYMPH % 6.6 % (24.0-44.0); MEAN CORPUSCULAR HEMOGLOBIN 27.7 pg (27.0-33.0); MEAN CORPUSCULAR VOLUME 81.6 fl (80.0-96.0); MONO # 0.6 10^3/uL (0.0-0.8); MONO % 3.8 % (2.0-8.0); NEUTROPHILS # 14.9 10^3/uL (1.5-8.5); NEUTROPHILS % 88.7 % (36.0-66.0); PLATELET COUNT, AUTOMATED 189 10^3/uL (150-450); RED BLOOD COUNT 5.16 10^6/uL (4.30-6.10); WHITE BLOOD COUNT 16.8 10^3/uL (4.0-10.0)
[2021-03-27 05:04] LABS: ACETAMINOPHEN LEVEL < 2.0 UG/ML (10.0-30.0); ALBUMIN 3.8 GM/DL (3.2-5.2); ALT/SGPT 25 U/L (12-78); BILIRUBIN,DIRECT 0.4 MG/DL (0.0-0.2); BILIRUBIN,TOTAL 1.2 MG/DL (0.2-1.0); BLOOD UREA NITROGEN 16 MG/DL (7-18); CALCIUM LEVEL 8.7 MG/DL (8.5-10.1); CARBON DIOXIDE LEVEL 22 MEQ/L (21-32); CHLORIDE LEVEL 106 MEQ/L (98-107); CPK CREATINE PHOSPHOKINASE 134 U/L (39-308); CREATININE FOR GFR 0.97 MG/DL (0.70-1.30); ETHYL ALCOHOL (ETHANOL) 0.178 % (0.000-0.010); GLOMERULAR FILTRATION RATE > 60.0 (>60); GLUCOSE, FASTING 66 MG/DL (70-100); POTASSIUM SERUM 3.9 MEQ/L (3.5-5.1); SALICYLATE LEVEL 3.1 MG/DL (5.0-30.0); SODIUM LEVEL 141 MEQ/L (136-145); THYROID STIMULATING HORMONE 0.412 uIU/ML (0.358-3.740); TOTAL PROTEIN 7.7 GM/DL (6.4-8.2)
[2021-03-27 05:07] LABS: AMPHETAMINES LEVEL URINE NEGATIVE (NEGATIVE); BARBITURATES URINE NEGATIVE (NEGATIVE); BENZODIAZEPINES URINE NEGATIVE (NEGATIVE); CANNABINOIDS URINE POSITIVE (NEGATIVE); COCAINE METABOLITE URINE NEGATIVE (NEGATIVE); METHADONE URINE NEGATIVE (NEGATIVE); OPIATES URINE NEGATIVE (NEGATIVE); PHENCYCLIDINE URINE NEGATIVE (NEGATIVE)
--- OUTSIDE RECORDS SUMMARY | 2021-03-27 06:21 | CCD ---
Author Author [facility] Organization [facility] Address Unknown Phone Unavailable Care Team Providers Care Emergency Department Clinician Name Role Phone Justo Tian MD Unavailable Unavailable Justo Tian MD Unavailable Unavailable Justo Tian MD Unavailable Unavailable Justo Tian MD Unavailable Unavailable Justo Tian MD Unavailable Unavailable Justo Tian MD Unavailable Unavailable Justo Tian MD Unavailable Unavailable Justo Tian MD Unavailable Unavailable Justo Tian MD Unavailable Unavailable Justo Tina MD Unavailable Unavailable Justo Tian MD Unavailable [...] Unavailable Justo Tian MD Unavailable Unavailable Justo Tina MD Unavailable Unavailable Justo Tian MD Unavailable [...] Unavailable Justo Tian MD Unavailable Unavailable Justo Tina MD Unavailable Unavailable Justo Tian MD Unavailable Unavailable Justo Tian MD Unavailable Unavailable Justo Tian MD Unavailable Unavailable Justo Tian MD Unavailable Unavailable Justo Tina MD Unavailable Unavailable Justo Tian MD Unavailable [...] Justo Tian MD Unavailable Unavailable Toya, Michael TRAVEL ASSISTANT Unavailable Toya, Michael TRAVEL ASSISTANT Unavailable Toya, Michael TRAVEL ASSISTANT Unavailable Althouse, Mercedes TRAVEL ASSISTANT Unavailable Unavailable Praveena Levy Unavailable Maryjo Acharya [...] Unavailable CONY, Anabella HERNANDEZ MD Unavailable Unavailable OCNY, Anabella HERNANDEZ MD Unavailable Unavailable CONY, Anabella [...] Anabella HERNANDEZ MD Unavailable Unavailable CONY, Anabella HERNANEDZ MD Unavailable Unavailable CONY, Anabella HERNANDEZ MD Unavailable Unavailable CONY, Anabella HERNANDEZ MD Unavailable Unavailable CONY, Anabella HERNANDEZ MD Unavailable Unavailable CONY, Anabella HERNANDEZ MD Unavailable Unavailable CONY, Anabella HERNANDEZ MD Unavailable Unavailable CONY, Anabella HERNANDEZ MD Unavailable Unavailable CONY, Anabella HERNANDEZ MD Unavailable Unavailable OCNY, Anabella HERNANDEZ MD Unavailable Unavailable CONY, Anabella HERNANDEZ MD Unavailable Unavailable CONY, Anabella HERNANDEZ MD Unavailable Unavailable MACQUEEN, AMRIK TRAVEL ASSISTANT Unavailable Unavailable MACQUEEN, AMRIK TRAVEL ASSISTANT Unavailable Unavailable MACQUEEN, ARMIK TRAVEL ASSISTANT Unavailable Unavailable MACQUEEN, AMRIK TRAVEL ASSISTANT Unavailable Unavailable MACQUEEN, AMRIK TRAVEL ASSISTANT Unavailable Unavailable MACQUEEN, AMRIK TRAVEL ASSISTANT Unavailable Unavailable MACQUEEN, AMRIK TRAVEL ASSISTANT Unavailable Unavailable MACQUEEN, AMRIK TRAVEL ASSISTANT Unavailable Unavailable MACQUEEN, AMRIK TRAVEL ASSISTANT Unavailable Unavailable MACQUEEN, AMRIK TRAVEL ASSISTANT Unavailable Unavailable SYSTEM, NOT IN PROVIDER Unavailable [...] is protected by Article 27-F of the [facility] Public Health law. If you continue you may have access to information: Regarding HIV / AIDS; Provided by facilities licensed or operated by the [facility] Office of Mental Health; or Provided by the [facility] Office for People With Developmental Disabilities. If such information is present, then the following [facility] mandated warning applies: This information has [...] allergy No Known Allergies No Known Allergies [facility] Drug allergy Drug allergy No Known Allergies [facility] Encounters Encounter Providers Location Date Indications Data Source(s ) Gonzalez Tian MD: [address] [place] [address], Ph. Attender: Gonzalez Tian MD [facility] Medical 01/22/2021 12:00:00 AM EDT [facility] ([facility]) Gonzalez Tian MD: [address] [place] [phone], Ph. Attender: Gonzalez Tian MD [facility] Medical 01/15/2021 12:00:00 AM EDT K[facility] ([facility]) Gonzalez Tian MD: [address] [place] [phone], Ph. Attender: Gonzalez Tian MD [facility] Medical 12/13/2020 12:00:00 AM EDT K[facility] ([facility]) Gonzalez Tian MD: [address] [place] [phone], Ph. Attender: Gonzalez Tian MD [facility] Medical 12/13/2020 12:00:00 AM EDT [facility] ([facility]) Brief Individual Psychotherapy - 30 min Attender: Maryjo castro [facility] 06/13/2020 12:00:00 PM EST - 06/13/2020 12:00:00 PM EST [facility] ([facility]) Attender: Maryjo Marck 06/13/2020 12:00:00 AM EST [facility] ([facility]) Psychiatric Diagnostic Evaluation (Non-Medical) Attender: Leticia mccormick [facility] 06/02/2020 10:00:00 AM EST - 06/02/2020 10:00:00 AM EST [facility] ([facility]) Attender: Maryjo Marck 06/02/2020 12:00:00 AM EST [facility] ([facility]) Telemed Diagnostic Eval Attender: AMRIK JOHNSON NP [facility] 05/30/2020 10:00:00 AM EST - 05/30/2020 10:00:00 AM EST [facility] ([facility]) Attender: AMRIK JOHNSON NP 05/30/2020 12:00:00 AM EST [facility] ([facility]) Extended Individual Psychotherapy - 45 min Attender: Mrayjo Marck [facility] 05/23/2020 11:00:00 AM EST - 05/23/2020 11:00:00 AM EST [facility] ([facility]) Attender: Maryjo Marck 05/23/2020 12:00:00 AM EST [facility] ([facility]) Extended Individual Psychotherapy - 45 min Attender: Cheri Levy [facility] 05/08/2020 03:00:00 AM EST - 05/08/2020 03:00:00 AM EST [facility] ([facility]) Attender: Praveena Levy 05/08/2020 12:00:00 AM EST [facility] ([facility]) Outpatient Referrer: KARRIE KEY [id number] 04/30/2020 04:4 4:00 AM EST psych [facility] psych Outpatient Attender: Mercedes Diaz PAdmitter: Candido ColonConsultant: Candido Colon 04/30/2020 02:00:00 AM EST [facility] Inpatient Attender: Candido ColonAdmitter: Candido Colon 04/30/2020 02:00:00 AM EST - 05/03/2020 12:14:00 PM EST [facility] Patient discharged. Outpatient Attender: Mercedes Murciamitter: Candido ColonConsultant: Candido Colon 04/30/2020 02:00:00 AM EST [facility] Outpatient Attender: Michael Pittman NPAdmitter: Candido ColonConsultant: Candido Colon 04/30/2020 02:00:00 AM EST [facility] Outpatient Attender: Mercedes Murciamitter: Candido ColonConsultant: Candido Colon 04/30/2020 02:00:00 AM EST [facility] Inpatient Attender: MARY DONNELLY MDAdmitter: MARY DONNELLY MD [facility] 03/20/2020 02:05:00 PM EDT - 03/20/2020 06:39:00 PM EDT F10 F1020 [facility] F1920 F1020 Patient discharged. Inpatient Attender: MARY DONNELLY MDAdmitter: MARY DONNELLY MD [facility] 03/20/2020 09:00:00 AM EDT - 03/20/2020 05:00:00 PM EDT F1920 [facility] F1920 Medications Medication Brand Name Start Date [...] cholecalciferol 0.025 MG Oral Ta blet KATHRYN ([facility]) Folic Acid 1 MG Oral Tablet folic acid 1 mg tablet TAKE ONE TABLET BY MOUTH EVERY DAY folic acid 1 mg tablet TAKE ONE TABLET BY MOUTH EVERY DAY completed folic acid 1 MG Oral Tablet ATHRachel KEYS ([facility]) Folic Acid 1 MG Oral Tablet folic acid 1 mg tablet TAKE ONE TABLET BY MOUTH EVERY DAY folic acid 1 mg tablet TAKE ONE TABLET BY MOUTH EVERY DAY completed folic acid 1 MG Oral Tablet KUNAL KEYS ([facility]) Naltrexone hydrochloride 50 MG Oral Tabl et naltrexone 50 mg tablet TAKE ONE TABLET BY MOUTH EVERY DAY naltrexone 50 mg tablet TAKE ONE TABLET BY MOUTH EVERY DAY completed naltrexone hydro chloride 50 MG Oral Tablet KATHRYN ([facility]) Thiamine 100 MG Oral Tablet thiamine mon onitrate (vitamin B1) 100 mg tablet TAKE ONE TABLET BY MOUTH EVERY DAY thiamine mononitrate (vitamin B1) 100 mg tablet TAKE ONE TABLET BY MOUTH EVERY DAY com pleted thiamine 100 MG Oral Tablet K[facility]YN ([facility]) Sertraline 25 MG Oral Tablet sertraline 25 mg tablet TAKE ONE TABLET BY MOUTH EVERY DAY sertraline 25 mg tablet TAKE ONE TABLET BY MOUTH EVERY DAY completed sertraline 25 MG Oral Tablet KATHRYN ([facility]) Thiamine 100 MG Oral Tablet thiamine mon onitrate (vitamin B1) 100 mg tablet TAKE ONE TABLET BY MOUTH EVERY DAY thiamine mononitrate (vitamin B1) 100 mg tablet TAKE ONE TABLET BY MOUTH EVERY DAY com pleted thiamine 100 MG Oral Tablet K[facility] ([facility]) Cholecalciferol 1000 UNT Oral Tablet cho lecalciferol (vitamin D3) 25 mcg (1,000 unit) tablet TAKE ONE TABLET BY MOUTH AT BEDTIME cholecalciferol (vitamin D3) 25 mcg (1,000 unit) tablet TAKE ONE TABLET BY MOUTH AT BEDTIME completed cholecalciferol 0.025 MG Oral Ta blet KATHRYN ([facility]) Doxycycline Monohydrate 100 MG Oral Caps ule doxycycline monohydrate 100 mg capsule doxycycline monohydrate 100 mg capsule completed doxycycline monohydrate 100 MG Oral Capsule K[facility]YN ([facility]) Trazodone Hydrochloride 50 MG Oral Table t trazodone 50 mg tablet TAKE ONE TABLET BY MOUTH AT BEDTIME trazodone 50 mg tablet TAKE ONE TABLET BY MOUTH AT BED TIME completed trazodone hydr ochloride 50 MG Oral Tablet KATHRYN ([facility]) Naltrexone hydrochloride 50 MG Oral Tabl et naltrexone 50 mg tablet TAKE ONE TABLET BY MOUTH EVERY DAY naltrexone 50 mg tablet TAKE ONE TABLET BY MOUTH EVERY DAY completed naltrexone hydro chloride 50 MG Oral Tablet K[facility]YN ([facility]) Sertraline 25 MG Oral Tablet sertraline 25 mg tablet TAKE ONE TABLET BY MOUTH EVERY DAY sertraline 25 mg tablet TAKE ONE TABLET BY MOUTH EVERY DAY completed sertraline 25 MG Oral Tablet KATHRYN ([facility]) Trazodone Hydrochloride 50 MG Oral Table t trazodone 50 mg tablet TAKE ONE TABLET BY MOUTH AT BEDTIME trazodone 50 mg tablet TAKE ONE TABLET BY MOUTH AT BED TIME completed trazodone hydr ochloride 50 MG Oral Tablet KATHRYN ([facility]) Doxycycline Monohydrate 100 MG Oral Caps ule doxycycline monohydrate 100 mg capsule doxycycline monohydrate 100 mg capsule completed doxycycline monohydrate 100 MG Oral Capsule KATHRYN ([facility]) Insurance Providers Payer name Policy type / Coverage type Policy ID Covered democrat ID Covered democrat's relationship to rodriguez Policy Rodriguez Plan Information MEDICAID [id number] Admitting [id number] E[place] [id number] SP [id number] [facility] [id number] SP [id number] SELF PAY MEDICAID [id number] S [id number] [facility] COMMUNITY PLAN [facility] [id number] SP [id number] MEDICAID [id number] SP [id number] [facility] COMMUNITY PLAN [facility] [id number] SP [id number] EMEDNY [id number] SP [id number] SELF PAY ONLY [id number] SP [id number] Problems, Conditions, and Diagnoses Code Display Name Description Problem Type Effective Dates Data Source(s) psych psych Diagnosis 04/30/2020 04:44:00 AM [facility] M25.511 Pain in right shoulder M25.511 - Pain in right shoulde r Diagnosis 04/30/2020 02:00:00 AM [facility] R45.851 Suicidal ideations R45.851 - Suicidal ideations Diagno sis 04/30/2020 02:00:00 AM [facility] F41.9 Anxiety disorder, unspecified F41.9 - Anxiety di sorder, unspecified Diagnosis 04/30/2020 02:00:00 AM [facility] F17.200 Nicotine dependence, unspecified, uncomp licated F17.200 - Nicotine dependence, unspecified, uncomplicated Diagnosis 04/30/2020 02:00:00 A M [facility] F10.20 Alcohol dependence, uncomplicated F10.20 - Alcohol dependence, uncomplicated Diagnosis 04/30/2020 02:00:00 AM [facility] F32.9 Major depressive disorder, single episod e, unspecified F32.9 - Major depressive disorder, single episode, unspecified Diagnosis 04/30 02:00:00 AM [facility] Z53.29 Procedure and treatment not carried out because of patient's decision for other reasons PROC/TRTMT NOT CRD OUT BEC PT DECISION FOR OTH REASONS Diagn osis 03/20/2020 09:00:00 AM EDT [facility] 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, uncomplicated OTHER PSYCHOACTIVE SUBSTANCE DEPENDENCE, UNCOMPLICATED Diagnosis 03/20/2020 09:00:00 AM E DT [facility] [phone] Adult health examination Adult Health Examination Prob ann 01/22/2021 12:00:00 AM EDT [facility]) F17.200 Nicotine dependence, unspecified, uncomp licated Tobacco Use Disorder, Moderate Condition 06/13/2020 12:00:00 AM EST [facility] ([facility]) F12.10 Cannabis abuse, uncomplicated Cannabis Use Disorder, M ild Condition 06/13/2020 12:00:00 AM EST [facility] ([facility]) F15.10 Other stimulant abuse, uncomplicated Sti mulant Use Disorder, Mild: Other or unspecified stimulant Condition 06/13/2020 12:00:00 AM EST [facility] ([facility]) F10.20 Alcohol dependence, uncomplicated Alcohol Use Di sorder, Moderate Condition 06/13/2020 12:00:00 AM EST [facility] ([facility]) F33.2 Major depressive disorder, recurrent 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 Major Depressive Disorder, Recurrent episode, Severe Condition 0 06/13/2020 12:00:00 AM EST [facility] ([facility]) Surgeries/Procedures Procedure Description Date Indications Data Source(s) Brief Individual Psychotherapy - 30 min 06/13/2020 12:00:00 AM EST - 06/13/2020 12:00:00 AM EST [facility] ([facility]) Brief Individual Psychotherapy - 30 min 06/13/2020 12: 00:00 AM EST [facility] ([facility]) Psychiatric Diagnostic Evaluation (Non-Medical) 06/02/2020 12:00:00 AM EST - 06/02/2020 12:00:00 AM EST [facility] ([facility]) Psychiatric Diagnostic Evaluation (Non-Medical) 2020 12:00:00 AM EST [facility] ([facility]) Telemed Diagnostic Eval 05/30/2020 12:00 :00 AM EST - 05/30/2020 12:00:00 AM EST [facility] ([facility]) Telemed Diagnostic Eval 05/30/2020 12:00:00 AM EST [facility] ([facility]) Extended Individual Psychotherapy - 45 min 05/23/2020 12:00:00 AM EST - 05/23/2020 12:00:00 AM EST [facility] ([facility]) Extended Individual Psychotherapy - 45 min 0 12:00:00 AM EST [facility] ([facility]) Extended Individual Psychotherapy - 45 min 05/08/2020 12:00:00 AM EST - 05/08/2020 12:00:00 AM EST [facility] ([facility]) Extended Individual Psychotherapy - 45 min 0 12:00:00 AM EST [facility] ([facility]) Results ID Date Data Source [id number] 01/18/2021 12:00:00 AM EDT [facility]) Name Value Range Interpretation Code Description Data Nedra rce(s) Supporting Document(s) Thyrotropin [Units/volume] in Serum or Plasma 1.92 mIU/L 0.40-4.50 Tsh [facility]) ID Date Data Source [id number] 01/18/2021 12:00:00 AM EDT [facility]) Name Value Range Interpretation Code Description Data Nedra rce(s) Supporting Document(s) Glucose [Mass/volume] in Serum or Plasma 87 mg/dL 65-99 Glucose KATHRYN ([facility]) Urea nitrogen [Mass/volume] in Serum or Plasma 20 mg/dL 7-25 Urea Nitrogen (BUN) KATHRYN ([facility]) Creatinine [Mass/volume] in Serum or Plasma 1.10 mg/dL 0.60-1.35 Creatinine K[facility] ([facility]) Glomerular filtration rate/1.73 sq M.pre dicted among non-blacks [Volume Rate/Area] in Serum, Plasma or Blood by Creatinine-based formula (CKD-EPI) 87 mL/min/1.73m2 > or = 60 eGFR Non-afr. Somali KATHRYN ([facility]) Urea nitrogen/Creatinine [Mass Ratio] in Serum or Plasma not applic able 6-22 BUN/creatinine Ratio KATHRYN ([facility]) Glomerular filtration rate/1.73 sq M.pre dicted among blacks [Volume Rate/Area] in Serum, Plasma or Blood by Creatinine-based formula (CKD-EPI) 101 mL/min/1.73m2 > or = 60 eGFR KATHRYN ([facility]) Potassium [Moles/volume] in Serum or Plasma 4.2 mmol/L 3.5-5.3 Potassium K[facility] ([facility]) Sodium [Moles/volume] in Serum or Plasma 138 mmol/L 135-146 Sodium [facility] ([facility]) Chloride [Moles/volume] in Serum or Plasma 102 mmol/L 98-110 Chloride K[facility] ([facility]) Calcium [Mass/volume] in Serum or Plasma 9.0 mg/dL 8.6-10.3 Calcium KAT[facility]YN ([facility]) Carbon dioxide, total [Moles/volume] in Serum or Plasma 28 mmol/L 20-32 Carbon Dioxide KAT[facility]YN ([facility]) Albumin/Globulin [Mass Ratio] in Serum or Plasma 1.4 (calc) 1.0-2 .5 Albumin/globulin Ratio KAT[facility]YN ([facility]) Albumin [Mass/volume] in Serum or Plasma 4.2 g/dL 3.6-5.1 Albumin KATHRYN ([facility]) Globulin [Mass/volume] in Serum by calculation 2.9 g/dL_(calc) 1.9- 3.7 Globulin KATHRYN ([facility]) Protein [Mass/volume] in Serum or Plasma 7.1 g/dL 6.1-8.1 Protein, Total KATHRYN ([facility]) Alanine aminotransferase [Enzymatic activity/volume] in Seru m or Plasma 14 U/L 9-46 Alt KATHRYN ([facility]) Alkaline phosphatase [Enzymatic activity/volume] in Serum or Plasma 55 U/L 36-130 Alkaline Phosphatase [facility]YN ([facility]) Aspartate aminotransferase [Enzymatic activity/volume] in Serum or Plasma 21 U/L 10-40 Ast KATHRYN ([facility]) Bilirubin.total [Mass/volume] in Serum or Plasma 1.4 mg/dL 0.2-1.2 Above high normal Bilirubin, Total [facility] ([facility]) ID Date Data Source [id number] 01/18/2021 12:00:00 AM EDT KAT[facility] ([facility]) Name Value Range Interpretation Code Description Data Nedra rce(s) Supporting Document(s) Cholesterol [Mass/volume] in Serum or Plasma 160 mg/dL <200 Cholesterol, Total KATHRYN ([facility]) Cholesterol in LDL [Mass/volume] in Serum or Plasma by calculation 65 mg/dL_(calc) LDL-cholesterol K[facility] ([facility]) Cholesterol in HDL [Mass/volume] in Serum or Plasma 74 mg/dL > or = 40 HDL Cholesterol KATHRYN ([facility]) Cholesterol.total/Cholesterol in HDL [Mass Ratio] in Serum o r Plasma 2.2 (calc) <5.0 Chol/hdlc Ratio KATHRYN ([facility]) Triglyceride [Mass/volume] in Serum or Plasma 119 mg/dL <150 Triglycerides [place] ([facility]) Service comment [place] KATHRYN ([facility]) Cholesterol non HDL [Mass/volume] in Serum or Plasma 86 mg/dL_(calc ) <130 Non HDL Cholesterol [place] ([facility]) ID Date Data Source [id number] 05/02/2020 09:56:00 AM EST [facility] Name Value Range Interpretation Code Description Data Nedra rce(s) Supporting Document(s) WHITE BLOOD COUNT 8.26 10^3/uL 4.00-10.50 [facility] RED BLOOD COUNT 4.91 10^6/uL 4.30-5.80 [facility] HEMOGLOBIN 13.8 G/DL 13.0-17.5 N [facility] HEMATOCRIT 41.2 % 41.0-53.0 N [facility] MCV 83.9 FL 80.0-100.0 N [facility] MCH 28.1 PG 27.0-34.0 [facility] MCHC 33.5 G/DL 32-36 [facility] RDW 14.5 % 11.5-14.5 [facility] PLATELET COUNT 158 10^3/uL 130-400 [facility] MPV 12.3 FL 8.7-13.2 [facility] GRAN % (AUTO) 63.0 % 42.0-75.0 [facility] LYMPH % (AUTO) 25.8 % 20.0-51.0 [facility] MONO % (AUTO) 7.1 % 2.0-15.0 [facility] EOS % (AUTO) 3.5 % 0.0-11.0 [facility] BASO % (AUTO) 0.4 % 0.0-2.0 [facility] IG % (AUTO) 0.2 % 1.00-5.00 [facility] IG # (AUTO) 0.0 10^3/uL <0.5 [facility] GRAN # (AUTO) 5.20 10^3/uL 1.50-6.50 [facility] LYMPH # (AUTO) 2.1 k/uL 1.0-5.0 [facility] MONO # (AUTO) 0.59 k/uL 0.20-1.50 [facility] EOS # (AUTO) 0.29 10^3/uL 0.00-1.10 [facility] BASO # (AUTO) 0.03 10^3/uL 0.00-0.20 [facility] ID Date Data Source [id number] 05/02/2020 02:06:00 PM [facility] Name Value Range Interpretation Code Description Data Nedra rce(s) Supporting Document(s) RAPID PLASMA REAGIN NON-REACTIVE NONREACTIVE [facility] Test performed by charcoal methodology ID Date Data Source [id number] 05/02/2020 10:41:00 AM [facility] [employer] Has Patient Fasted For The Past 12 [...] rce(s) Supporting Document(s) SODIUM 139 MEQ/L 135-145 [facility] POTASSIUM 4.9 MEQ/L 3.5-5.3 [facility] CHLORIDE 109 MEQ/L 94-110 [facility] CARBON DIOXIDE 30 MEQ/L 22-33 N [facility] ANION GAP 5 5-16 N [facility] BLOOD UREA NITRO 18 MG/DL 7-25 N [facility] CREATININE 0.9 MG/DL 0.6-1.4 N [facility] GFR > 90.0 ML/MIN [facility] Stage G1 - Normal or high kidney functi on The GFR is an estimate of the Glomerular Filtration Rate. It is an aid to assess a patient's renal function. It is not a conclusive diagnosis of kidney disease. GFR normal is >=90 The MDRD GFR calculation is considered valid between the ages of 18 and 75 years only. BUN/CREAT RATIO 20 8-36 [facility] GLUCOSE 84 MG/DL 70-100 [facility] CA 8.9 MG/DL 8.7-10.5 [facility] BILIRUBIN,TOTAL 0.4 MG/DL 0.1-1.3 [facility] AST 45 U/L 5-40 H [facility] ALT 28 U/L 5-48 [facility] ALKALINE PHOSPHATASE 50 U/L 40-140 [facility] TOTAL PROTEIN 5.9 G/DL 5.9-8.3 [facility] ALBUMIN 3.9 G/DL 3.0-5.1 [facility] GLOBULIN 2.0 G/DL 1.5-3.5 [facility] ALB/GLOB RATIO 2.0 G/DL 1.0-3.0 [facility] ID Date Data Source [id number] 05/02/2020 10:41:00 AM [facility] Has Patient Fasted For The Past [...] Document(s) GLYCOSYLATED HGBA1C 4.7 % 4.1-6.5 N [facility] ID Date Data Source [id number] 05/02/2020 10:41:00 AM [facility] [employer] Has Patient Fasted For The Past 12 [...] Supporting Document(s) TRIGLYCERIDES 120 MG/DL 45-150 [facility] CHOLESTEROL 166 MG/DL 125-200 [facility] LDL CHOLESTEROL 72 MG/DL 50-130 [facility] HDL CHOLESTEROL 70 MG/DL 39-96 [facility] CHOL/HDL RATIO 2.4 0-4.9 [facility] ID Date Data Source [id number] 05/02/2020 10:41:00 AM [facility] [employer] Has Patient Fasted For The Past 12 [...] Document(s) VITAMIN B12 620 PG/ML -1999 [facility] ID Date Data Source [id number] 05/02/2020 10:41:00 AM [facility] [employer] Has Patient Fasted For The Past 12 [...] Supporting Document(s) FOLATE 11.67 NG/ML 3.40-24.00 [facility] ID Date Data Source [id number] 05/02/2020 10:41:00 AM EST [facility] Has Patient Fasted For The Past [...] Document(s) Vitamin D,25-HYDROXY 21.0 ng/ml 30-100 [facility] Vitamin D Status Range De ficiency <20 ng/ml Insufficiency 20-29.9 ng/ml Sufficiency 30-100 ng/ml Toxicity >100 ng/ml Patients should not be tested for 72 hours post fluorescein dye angiography. A false elevation of result may occur. ID Date Data Source [id number] 05/02/2020 10:41:00 AM [facility] Fasted For The Past [...] Supporting Document(s) TSH 1.798 uIU/ML 0.470-4.200 [facility] Patients should not be tested for 72 ho urs post fluorescein dye angiography. A false depression of result may occur. ID Date Data Source [id number] 04/30/2020 05:16:00 AM EST [facility] Name Value Range Interpretation Code Description Data Nedra rce(s) Supporting Document(s) SARS coronavirus 2 RNA [Presence] in Res piratory specimen by KOFFI with probe detection [facility] This lab was ordered by [facility] a nd reported by [facility]. ID Date Data Source [id number] 04/30/2020 04:47:19 AM EST [facility] Name Value Range Interpretation Code Description Data Nedra rce(s) Supporting Document(s) Progress Note [facility] [id number] lbm [file] [id number] Procedure Social History Code Duration Value Status Description Data Source(s ) Smoking 06/13/2020 12:00:00 AM EST Unknown if ever smoked comp leted Unknown if ever smoked [facility] ([facility]) Smoking 06/02/2020 12:00:00 AM EST Unknown if ever smoked comp leted Unknown if ever smoked [facility] ([facility]) Smoking 05/30/2020 12:00:00 AM EST Unknown if ever smoked comp leted Unknown if ever smoked [facility] ([facility]) Smoking 05/23/2020 12:00:00 AM EST Unknown if ever smoked comp leted Unknown if ever smoked [facility] ([facility]) Smoking 05/08/2020 12:00:00 AM EST Unknown if ever smoked comp leted Unknown if ever smoked [facility] ([facility]) Vital Signs ID Date Data Source UNK Name Value Range Interpretation Code Description Data Source(s) Body weight 2340 [oz_av] 2340 [oz_av] [facility] ([facility]) Diastolic blood pressure 83 mm[Hg] 83 mm[Hg] [place] ([facility]) Body height 68 [in_i] 68 [in_i] [place] ([facility]) Body mass index (BMI) [Ratio] 22.2 kg/m2 22.2 k g/m2 [facility] ([facility]) Systolic blood pressure 123 mm[Hg] 123 mm[Hg] A [facility] ([facility]) Diastolic blood pressure 98 mm[Hg] 98 mm[Hg] [facility] ([facility]) Systolic blood pressure 142 mm[Hg] 142 mm[Hg] A [facility] ([facility]) Body weight 2404 [oz_av] 2404 [oz_av] [facility] ([facility]) Diastolic blood pressure 98 mm[Hg] 98 mm[Hg] [facility] ([facility]) Systolic blood pressure 142 mm[Hg] 142 mm[Hg] A [facility] ([facility]) Body weight 2404 [oz_av] 2404 [oz_av] [facility] ([facility]) ID Date Data Source [id number] 04/30/2020 04:47:19 AM [facility] Hospital Name Value Range Interpretation Code Description Data Source(s) TRANSFER FROM [facility] ID Date Data Source [id number] 03/20/2020 06:39:00 PM EDT [facility] spital Name Value Range Interpretation Code Description Data Source(s) Weight Measurement Method 1 1 [facility] Weight (Calculated Kilograms) 64.95 64.95 [facility] Weight [address] [facility] pital Temperature Source 7 7 [facility] Temperature 98.1 98.1 [facility] spital Respiratory Effort 1 1 [facility] Respiratory Rate 20 20 [facility] Pulse Assessment Method 4 4 G [facility] Pulse [facility] 75 [facility] Height (Calculated Centimeters) 172.72 172. 72 [facility] Height 68 68 [facility] Blood Pressure 132/92 132/92 [facility] Body Mass Index (BMI) 21.7 21.7 [facility] Weight [address] [facility] pital Height 68 68 [facility] Plan of Care Planned Activity Planned Date Details Description Data Source (s) Trazodone Hydrochloride 50 MG Oral Tablet KAT[facility]YN [facility]) Thiamine 100 MG Oral Tablet [facility]) Sertraline 25 MG Oral Tablet [facility]) [facility]ide [facility] Folic Acid [facility] Doxycycline Monohydrate 100 MG [facility]ule [facility] Cholecalciferol 1000 UNT [facility] Trazodone Hydrochloride 50 MG Oral Tablet [facility]) Thiamine 100 MG Oral Tablet KAT[facility]YN [facility]) Sertraline 25 MG Oral Tablet KAT[facility]YN [facility]) Naltrexone hydrochloride 50 MG Oral Tablet KATHRYN ([facility]) Folic Acid 1 MG Oral Tablet KATHRYN ([facility]) Doxycycline Monohydrate 100 MG Oral Capsule KATHRYN ([facility]) Cholecalciferol 1000 UNT Oral Tablet KATHRYN ([facility])
--- NOTE | 2021-03-27 06:35 | REPVR ---
PROCEDURE INFORMATION: Exam: XR Chest Exam date and time: 03/27/2021 4:44 AM Age: 35 years old Clinical indication: Other: Overdose; Additional info: Drug overdose TECHNIQUE: Imaging protocol: XR of the chest. Views: 1 view. COMPARISON: No relevant prior studies available. FINDINGS: Lungs: Unremarkable. No consolidation. Pleural spaces: Unremarkable. No pleural effusion. No pneumothorax. Heart/Mediastinum: Unremarkable. No cardiomegaly. Bones/joints: Unremarkable. IMPRESSION: No acute findings. Electronically signed by: Shaggy Anderson On 03/27/2021 06:34:54 AM
[2021-03-27 07:45] VITALS: BP 132/72
--- NOTE | 2021-03-27 08:34 | ECGEPIP ---
[facility] - ED Test Date: 2021-03-27 Pat Name: GLORIA SONI Department: Room: - Gender: Male [employer]: MICA : [id number] Requested By: TATY Cox Order Number: [id number] Reading MD: Roscoe Cornell Measurements Intervals [place] Rate: 76 P: 64 MS: 162 QRS: 33 QRSD: 86 T: 45 QT: 392 QTc: 441 Interpretive Statements Normal sinus rhythm INCOMPLETE RIGHT BUNDLE BRANCH BLOCK SIMILAR TO 04/30/20 Electronically Signed on 03-27-2021 8:34:17 EDT by Roscoe Cornell
== END 2021-03-27 08:12 | disposition home or self-care (01) ==
LOC: M ED 04:04
DX: F10.129 Alcohol abuse with intoxication, unspecified (principal); I45.10 Unspecified right bundle-branch block; F19.10 Other psychoactive substance abuse, uncomplicated; F12.10 Cannabis abuse, uncomplicated; F17.200 Nicotine dependence, unspecified, uncomplicated
CPT/HCPCS: 71045; 80048; 80076; 80143; 80307; 82077; 82550; 84443; 85025; 93005; 93041; 94760; 96361; 96365; 96375; 99285; J2405; J3411

== ENCOUNTER 2021-04-25 07:42 | Emergency (ER) | payer OTHER ==
[~2021-04-25] VITALS: Ht 175.3 cm; Wt 65.4 kg
[2021-04-25 10:13] LABS: HEPATITIS B SURFACE ANTIBODY POSITIVE (POSITIVE); HEPATITIS B SURFACE ANTIGEN NEGATIVE (NEGATIVE); HEPATITIS C VIRUS ABY INDEX 0.1 INDEX (<0.8); HIV 1&2 SCREEN CENTAUR NEGATIVE (NEGATIVE)
[2021-04-25 10:22] LABS: GC DNA AMPLIFICATION POSITIVE (NEGATIVE)
[2021-04-25] MEDS ORDERED: cefTRIAXone 500MG VIAL (J0696 PER 250MG) IM ONE (10:55)
[2021-04-25] MEDS ORDERED: LIDOCAINE 1% SDV 5ML VIAL DILUENT ONE (10:55)
[2021-04-25 11:34] VITALS: BP 156/110
== END 2021-04-25 11:40 | disposition home or self-care (01) ==
LOC: M ED 07:42
DX: A54.9 Gonococcal infection, unspecified (principal); F17.200 Nicotine dependence, unspecified, uncomplicated
CPT/HCPCS: 86706; 86780; 86803; 87340; 87389; 87661; 96372; 99283; J0696

== ENCOUNTER 2022-01-12 06:04 | Inpatient (IN) | payer OTHER ==
[~2022-01-12] VITALS: Ht 172.7 cm; Wt 68.0 kg
[2022-01-12] MEDS ORDERED: ACAM0.05 PO (06:39)
[2022-01-12] MEDS ORDERED: TRAZ-252 PO (06:39)
[2022-01-12 06:56] LABS: HEMATOCRIT 44.5 % (42.0-52.0); HEMOGLOBIN 15.3 g/dl (13.5-17.5); MEAN CORPUSCULAR HEMOGLOBIN 27.7 pg (27.0-33.0); MEAN CORPUSCULAR HGB CONC 34.4 g/dl (32.0-36.5); MEAN CORPUSCULAR VOLUME 80.6 fl (80.0-96.0); PLATELET COUNT, AUTOMATED 194 10^3/uL (150-450); RED BLOOD COUNT 5.52 10^6/uL (4.30-6.10)
[2022-01-12 07:27] LABS: AMPHETAMINES LEVEL URINE NEGATIVE (NEGATIVE); BARBITURATES URINE NEGATIVE (NEGATIVE); BENZODIAZEPINES URINE NEGATIVE (NEGATIVE); CANNABINOIDS URINE POSITIVE (NEGATIVE); COCAINE METABOLITE URINE NEGATIVE (NEGATIVE); METHADONE URINE NEGATIVE (NEGATIVE); OPIATES URINE NEGATIVE (NEGATIVE); PHENCYCLIDINE URINE NEGATIVE (NEGATIVE)
[2022-01-12 07:41] LABS: ACETAMINOPHEN LEVEL < 2.0 UG/ML (10.0-30.0); ALBUMIN 4.4 GM/DL (3.2-5.2); ALT/SGPT 37 U/L (12-78); BILIRUBIN,DIRECT 0.5 MG/DL (0.0-0.2); BILIRUBIN,TOTAL 2.2 MG/DL (0.2-1.0); BLOOD UREA NITROGEN 17 MG/DL (7-18); CALCIUM LEVEL 9.8 MG/DL (8.5-10.1); CARBON DIOXIDE LEVEL 29 MEQ/L (21-32); CHLORIDE LEVEL 96 MEQ/L (98-107); CREATININE FOR GFR 1.05 MG/DL (0.70-1.30); ETHYL ALCOHOL (ETHANOL) 0.004 % (0.000-0.010); GLOMERULAR FILTRATION RATE > 60.0 (>60); GLUCOSE, FASTING 111 MG/DL (70-100); POTASSIUM SERUM 4.3 MEQ/L (3.5-5.1); RSV AMPLIFICATION NEGATIVE (NEGATIVE); SALICYLATE LEVEL < 1.7 MG/DL (5.0-30.0); SODIUM LEVEL 135 MEQ/L (136-145); TOTAL PROTEIN 8.8 GM/DL (6.4-8.2)
[2022-01-12] MEDS ORDERED: LORazepam 2 MG TAB PO STA (08:18)
[2022-01-12] MEDS ORDERED: OLANZapine ORAL DISINTEGRATING TAB 5MG PO ONE (08:20)
[2022-01-12] MEDS ORDERED: HOME MED LIST COMPLETE! XX SCH (13:25)
[2022-01-12] MEDS ORDERED: OLANZapine 10 MG TAB PO ONE (19:55)
[2022-01-13] MEDS: traZODone 50 MG TAB PO SCH (19:28)
[2022-01-14 15:13] LABS: RSV AMPLIFICATION NEGATIVE (NEGATIVE)
[2022-01-14] MEDS ORDERED: MOM 30ML SUSPENSION UDC PO PRN (18:50)
[2022-01-14] MEDS ORDERED: MAALOX 30 ML SUSP *UDC PO PRN (18:50)
[2022-01-14] MEDS ORDERED: IBUPROFEN 400MG TAB PO PRN (18:50)
[2022-01-14] MEDS ORDERED: NICOTINE 21MG/24HR 1 EA TRANSDERMAL TD PRN (18:50)
[2022-01-14] MEDS ORDERED: OLANZapine ORAL DISINTEGRATING TAB 5MG PO PRN (18:50)
[2022-01-14] MEDS: traZODone 50 MG TAB PO SCH (21:27)
[2022-01-14] MEDS: PALIPERIDONE 3 MG ER TAB (INVEGA) PO SCH (23:45)
[2022-01-14] MEDS: traZODone 50 MG TAB PO PRN (23:45)
[2022-01-14 23:58] VITALS: BP 120/69
[2022-01-15 06:39] VITALS: BP 121/76
[2022-01-15] MEDS: ACAMPROSATE CALCIUM 333 MG TABLET (CAMPRAL) PO SCH ×2 (15:57→20:38)
[2022-01-15 16:15] VITALS: BP 126/90
[2022-01-15 16:59] LABS: CHOLESTEROL RISK RATIO 2.066 (<5)
[2022-01-15 18:27] VITALS: BP 126/90
[2022-01-15] MEDS: traZODone 50 MG TAB PO PRN (20:38)
[2022-01-15] MEDS: PALIPERIDONE 3 MG ER TAB (INVEGA) PO SCH (20:38)
[2022-01-15 20:43] VITALS: BP 134/83
[2022-01-16 06:47] VITALS: BP 114/59
[2022-01-16] MEDS: ACAMPROSATE CALCIUM 333 MG TABLET (CAMPRAL) PO SCH (07:49)
[2022-01-16] MEDS ORDERED: TRAZ-252 PO (08:30)
[2022-01-16] MEDS ORDERED: PALI1TAB2 PO (08:30)
[2022-01-16] MEDS ORDERED: NICO21PAT TD (08:30)
[2022-01-16] MEDS ORDERED: ACAM0.05 PO (08:30)
[2022-01-16 08:35] VITALS: BP 114/59
== END 2022-01-16 11:11 | disposition home or self-care (01) | DRG 775 ==
LOC: M ED 06:04 → M ED INP 01-14 18:50 → M PSY 01-14 23:22
PROVIDERS: ADMIT Student in an Organized Health Care Education/Training Program; ATTEND Student in an Organized Health Care Education/Training Program
DX: F16.950 Hallucinogen use, unspecified with hallucinogen-induced psychotic disorder with delusions (principal); F17.200 Nicotine dependence, unspecified, uncomplicated; Z79.899 Other long term (current) drug therapy; Z20.822 Contact with and (suspected) exposure to COVID-19; F10.950 Alcohol use, unspecified with alcohol-induced psychotic disorder with delusions

== ENCOUNTER 2022-01-25 20:39 | Emergency (ER) | payer OTHER ==
[~2022-01-25] VITALS: Ht 172.7 cm; Wt 67.0 kg
[~2022-01-25 20:39] MED LIST changes: +ACAM0.05 PO; +NICO21PAT TD; +PALI1TAB2 PO; +TRAZ-252 PO
[2022-01-26 03:35] VITALS: BP 170/93
== END 2022-01-26 07:05 | disposition left against medical advice (07) ==
LOC: M ED 20:39
DX: Z53.21 Procedure and treatment not carried out due to patient leaving prior to being seen by health care provider (principal)

== ENCOUNTER 2022-05-01 21:15 | Emergency (ER) | payer OTHER ==
[~2022-05-01] VITALS: Ht 172.7 cm; Wt 75.0 kg
[2022-05-01 22:46] LABS: BARBITURATES URINE NEGATIVE (NEGATIVE); BENZODIAZEPINES URINE NEGATIVE (NEGATIVE); COCAINE METABOLITE URINE NEGATIVE (NEGATIVE); METHADONE URINE NEGATIVE (NEGATIVE); OPIATES URINE NEGATIVE (NEGATIVE); PHENCYCLIDINE URINE NEGATIVE (NEGATIVE)
[2022-05-01 22:51] LABS: AMPHETAMINES LEVEL URINE POSITIVE (NEGATIVE); CANNABINOIDS URINE POSITIVE (NEGATIVE)
[2022-05-01] MEDS ORDERED: LORazepam 2 MG/ML VIAL IM STA (22:54)
[2022-05-01] MEDS ORDERED: HALOPERIDOL 5MG/ML VIAL (J1630 PER 1) IM STA (22:54)
[2022-05-01] MEDS ORDERED: diphenhydrAMINE 50MG/ML VIAL IM STA (22:54)
[2022-05-01 22:58] LABS: RSV AMPLIFICATION NEGATIVE (NEGATIVE)
[2022-05-01 23:03] LABS: HEMATOCRIT 46.3 % (42.0-52.0); HEMOGLOBIN 15.8 g/dl (13.5-17.5); MEAN CORPUSCULAR HEMOGLOBIN 27.1 pg (27.0-33.0); MEAN CORPUSCULAR HGB CONC 34.1 g/dl (32.0-36.5); MEAN CORPUSCULAR VOLUME 79.6 fl (80.0-96.0); PLATELET COUNT, AUTOMATED 211 10^3/uL (150-450); RED BLOOD COUNT 5.82 10^6/uL (4.30-6.10); WHITE BLOOD COUNT 17.1 10^3/uL (4.0-10.0)
[2022-05-01 23:07] LABS: ETHYL ALCOHOL (ETHANOL) 0.003 % (0.000-0.010)
[2022-05-01 23:09] LABS: ACETAMINOPHEN LEVEL < 2.0 UG/ML (10.0-20.0); BILIRUBIN,DIRECT 0.4 MG/DL (<0.4); SALICYLATE LEVEL < 3.0 MG/DL (<30)
[2022-05-01 23:12] LABS: THYROID STIMULATING HORMONE 2.342 uIU/ML (0.55-4.78)
[2022-05-01 23:15] LABS: ALBUMIN 4.5 G/DL (3.2-5.2); ALKALINE PHOSPHATASE 71 U/L (46-116); ALT/SGPT 31 U/L (7.0-40); AST/SGOT 43 U/L (<34); BILIRUBIN,TOTAL 1.6 MG/DL (0.3-1.2); BLOOD UREA NITROGEN 22 MG/DL (9-23); CALCIUM LEVEL 9.9 MG/DL (8.5-10.1); CARBON DIOXIDE LEVEL 21 MMOL/L (20-31); CHLORIDE LEVEL 101 MMOL/L (98-107); CREATININE FOR GFR 1.02 MG/DL (0.70-1.30); GLOMERULAR FILTRATION RATE > 60.0 (>60); GLUCOSE, FASTING 155 MG/DL (60-100); POTASSIUM SERUM 5.9 MMOL/L (3.5-5.1); SODIUM LEVEL 133 MMOL/L (136-145)
[2022-05-02] MEDS ORDERED: TRAZ-186 PO (07:45)
[2022-05-02] MEDS ORDERED: PALI1TAB2 PO (07:45)
[2022-05-02] MEDS ORDERED: NICO1DIS12 TD (07:45)
[2022-05-02] MEDS ORDERED: ACAM0.05 PO (07:45)
[2022-05-02] MEDS ORDERED: PATIENT COMMENT (07:47)
[2022-05-02] MEDS ORDERED: HOME MED LIST COMPLETE! XX SCH (07:50)
[2022-05-02 11:58] LABS: BLOOD UREA NITROGEN 23 MG/DL (9-23); CALCIUM LEVEL 9.7 MG/DL (8.5-10.1); CARBON DIOXIDE LEVEL 29 MMOL/L (20-31); CHLORIDE LEVEL 101 MMOL/L (98-107); GLOMERULAR FILTRATION RATE > 60.0 (>60); GLUCOSE, FASTING 111 MG/DL (60-100); POTASSIUM SERUM 4.5 MMOL/L (3.5-5.1); SODIUM LEVEL 137 MMOL/L (136-145)
[2022-05-02 12:40] VITALS: BP 128/72
== END 2022-05-02 12:46 | disposition home or self-care (01) ==
LOC: M ED 21:15
DX: F19.959 Other psychoactive substance use, unspecified with psychoactive substance-induced psychotic disorder, unspecified (principal); S60.221A Contusion of right hand, initial encounter; F20.9 Schizophrenia, unspecified; F15.10 Other stimulant abuse, uncomplicated; F10.10 Alcohol abuse, uncomplicated; Z79.899 Other long term (current) drug therapy; Z79.83 Long term (current) use of bisphosphonates
CPT/HCPCS: 73110; 73130; 80048; 80076; 80143; 80307; 82077; 84443; 85027; 87631; 93005; 96372; 99285; J1200; J1630; J2060

== ENCOUNTER 2022-06-01 22:32 | Emergency (ER) | payer OTHER ==
[~2022-06-01] VITALS: Ht 167.6 cm; Wt 67.5 kg
[~2022-06-01 22:32] MED LIST changes: +NICO1DIS12 TD; +PATIENT COMMENT; +TRAZ-186 PO
[2022-06-01 22:34] VITALS: BP 169/97
[2022-06-02] MEDS ORDERED: FLUO20CA22 PO (12:09)
== END 2022-06-01 23:35 | disposition left against medical advice (07) ==
LOC: M ED 22:32
DX: Z53.21 Procedure and treatment not carried out due to patient leaving prior to being seen by health care provider (principal)

== ENCOUNTER 2022-06-02 09:23 | Inpatient (IN) | payer MEDICAID, OTHER ==
[~2022-06-02] VITALS: Ht 170.2 cm; Wt 66.8 kg
[2022-06-02 10:09] LABS: HEMOGLOBIN 14.7 g/dl (13.5-17.5); MEAN CORPUSCULAR HEMOGLOBIN 27.6 pg (27.0-33.0); MEAN CORPUSCULAR HGB CONC 33.4 g/dl (32.0-36.5); MEAN CORPUSCULAR VOLUME 82.6 fl (80.0-96.0); PLATELET COUNT, AUTOMATED 198 10^3/uL (150-450); RED BLOOD COUNT 5.33 10^6/uL (4.30-6.10); WHITE BLOOD COUNT 18.5 10^3/uL (4.0-10.0)
[2022-06-02] MEDS ORDERED: OLANZapine INTRAMUSCULAR 10MG VIAL IM ONE (10:40)
[2022-06-02 10:44] LABS: ETHYL ALCOHOL (ETHANOL) 0.004 % (0.000-0.010)
[2022-06-02 10:46] LABS: ACETAMINOPHEN LEVEL < 2.0 UG/ML (10.0-20.0); ALBUMIN 3.9 G/DL (3.2-5.2); ALKALINE PHOSPHATASE 73 U/L (46-116); ALT/SGPT 53 U/L (7.0-40); AST/SGOT 102 U/L (<34); BILIRUBIN,DIRECT 0.7 MG/DL (<0.4); BILIRUBIN,TOTAL 1.9 MG/DL (0.3-1.2); BLOOD UREA NITROGEN 25 MG/DL (9-23); CALCIUM LEVEL 9.4 MG/DL (8.5-10.1); CARBON DIOXIDE LEVEL 20 MMOL/L (20-31); CHLORIDE LEVEL 92 MMOL/L (98-107); CREATININE FOR GFR 0.82 MG/DL (0.70-1.30); GLOMERULAR FILTRATION RATE > 60.0 (>60); GLUCOSE, FASTING 64 MG/DL (60-100); POTASSIUM SERUM 4.2 MMOL/L (3.5-5.1); SALICYLATE LEVEL < 3.0 MG/DL (<30); SODIUM LEVEL 133 MMOL/L (136-145)
[2022-06-02 10:48] LABS: THYROID STIMULATING HORMONE 1.751 uIU/ML (0.55-4.78)
[2022-06-02] MEDS ORDERED: diphenhydrAMINE 50MG/ML VIAL IM ONE (10:50)
[2022-06-02 10:59] LABS: CPK CREATINE PHOSPHOKINASE 1688 U/L (46-171)
[2022-06-02] MEDS ORDERED: NS 1,000 ML IV ONE (11:15)
[2022-06-02] MEDS ORDERED: FLUO20CA22 PO (12:09)
[2022-06-02] MEDS ORDERED: HOME MED LIST COMPLETE! XX SCH (12:10)
[2022-06-02] MEDS ORDERED: NS 2,000 ML in IV 1 EA IV ONE (20:45)
[2022-06-02] MEDS ORDERED: OXAZEPAM 15MG CAP PO ONE (20:50)
[2022-06-02 22:51] LABS: AMPHETAMINES LEVEL URINE NEGATIVE (NEGATIVE); BARBITURATES URINE NEGATIVE (NEGATIVE); BENZODIAZEPINES URINE NEGATIVE (NEGATIVE); COCAINE METABOLITE URINE NEGATIVE (NEGATIVE); METHADONE URINE NEGATIVE (NEGATIVE); OPIATES URINE NEGATIVE (NEGATIVE); PHENCYCLIDINE URINE NEGATIVE (NEGATIVE)
[2022-06-02 23:00] LABS: CANNABINOIDS URINE POSITIVE (NEGATIVE)
[2022-06-03 06:36] LABS: BASO % 0.1 % (0.0-1.0); EOS % 0.4 % (0.0-3.0); HEMATOCRIT 34.7 % (42.0-52.0); LYMPH # 1.4 10^3/uL (1.5-5.0); LYMPH % 14.2 % (24.0-44.0); MEAN CORPUSCULAR HEMOGLOBIN 27.5 pg (27.0-33.0); MEAN CORPUSCULAR VOLUME 80.9 fl (80.0-96.0); MONO # 0.8 10^3/uL (0.0-0.8); MONO % 8.2 % (2.0-8.0); NEUTROPHILS # 7.5 10^3/uL (1.5-8.5); NEUTROPHILS % 76.5 % (36.0-66.0); RED BLOOD COUNT 4.29 10^6/uL (4.30-6.10); WHITE BLOOD COUNT 9.8 10^3/uL (4.0-10.0)
[2022-06-03 08:09] LABS: HEMOGLOBIN 11.8 g/dl (13.5-17.5); PLATELET COUNT, AUTOMATED 137 10^3/uL (150-450)
[2022-06-03] MEDS: MULTIVITAMINS/MINERALS THERAP 1 TAB PO SCH (09:00)
[2022-06-03] MEDS ORDERED: FLUoxetine 20MG CAP PO ONE (09:00)
[2022-06-03] MEDS: ACAMPROSATE CALCIUM 333MG TABLET (CAMPRAL) PO SCH ×3 (10:33→21:08)
[2022-06-03] MEDS ORDERED: NICOTINE 21MG/24HR 1 EA TRANSDERMAL TD PRN (16:35)
[2022-06-03] MEDS ORDERED: MOM 30ML SUSPENSION UDC PO PRN (16:35)
[2022-06-03] MEDS ORDERED: ACETAMINOPHEN TAB 650MG DOSE (2X325MG) PO PRN (16:35)
[2022-06-03] MEDS ORDERED: MAALOX 30 ML SUSP *UDC PO PRN (16:35)
[2022-06-03] MEDS ORDERED: OLANZapine ORAL DISINTEGRATING TAB 5MG PO PRN (16:35)
[2022-06-03] MEDS ORDERED: LORazepam 2 MG TAB PO PRN (17:20)
[2022-06-03] MEDS: FOLIC ACID 1MG TAB PO SCH (17:31)
[2022-06-03] MEDS: THIAMINE 100 MG TAB PO SCH (18:45)
[2022-06-03 22:14] VITALS: BP 129/69
[2022-06-03] MEDS: traZODone 50 MG TAB PO PRN (23:13)
[2022-06-04 06:14] VITALS: BP 115/64
[2022-06-04] MEDS: THIAMINE 100 MG TAB PO SCH ×2 (08:39→21:52)
[2022-06-04] MEDS: FLUoxetine 20MG CAP PO SCH (08:39)
[2022-06-04] MEDS: ACAMPROSATE CALCIUM 333MG TABLET (CAMPRAL) PO SCH ×3 (08:39→21:53)
[2022-06-04] MEDS: MULTIVITAMINS/MINERALS THERAP 1 TAB PO SCH (08:39)
[2022-06-04] MEDS: FOLIC ACID 1MG TAB PO SCH (08:39)
[2022-06-04 14:00] VITALS: BP 127/91
[2022-06-04 15:07] LABS: ALBUMIN 3.1 G/DL (3.2-5.2); ALKALINE PHOSPHATASE 56 U/L (46-116); ALT/SGPT 42 U/L (7.0-40); AST/SGOT 59 U/L (<34); BILIRUBIN,TOTAL 0.4 MG/DL (0.3-1.2); BLOOD UREA NITROGEN 15 MG/DL (9-23); CALCIUM LEVEL 9.1 MG/DL (8.5-10.1); CARBON DIOXIDE LEVEL 29 MMOL/L (20-31); CHLORIDE LEVEL 104 MMOL/L (98-107); GLOMERULAR FILTRATION RATE > 60.0 (>60); GLUCOSE, FASTING 103 MG/DL (60-100); POTASSIUM SERUM 3.9 MMOL/L (3.5-5.1); SODIUM LEVEL 141 MMOL/L (136-145); TOTAL PROTEIN 6.7 G/DL (5.7-8.2)
[2022-06-04 18:59] VITALS: BP 131/85
[2022-06-04] MEDS: PALIPERIDONE 3MG ER TAB (INVEGA) PO SCH (21:52)
[2022-06-04 22:00] VITALS: BP 131/85
[2022-06-04] MEDS: traZODone 50 MG TAB PO PRN (22:27)
[2022-06-05 06:00] VITALS: BP 129/62
[2022-06-05 07:54] LABS: CHOLESTEROL RISK RATIO 3.13 (<5); HDL CHOLESTEROL 52.6 MG/DL (>40); LDL CHOLESTEROL 95.6 MG/DL (<100)
[2022-06-05] MEDS: FLUoxetine 20MG CAP PO SCH (08:28)
[2022-06-05] MEDS: ACAMPROSATE CALCIUM 333MG TABLET (CAMPRAL) PO SCH ×3 (08:28→20:30)
[2022-06-05 18:31] VITALS: BP 128/70
[2022-06-05] MEDS: PALIPERIDONE 3MG ER TAB (INVEGA) PO SCH (20:30)
[2022-06-05] MEDS: traZODone 50 MG TAB PO PRN (22:46)
[2022-06-06 06:34] VITALS: BP 144/98
[2022-06-06] MEDS: FLUoxetine 20MG CAP PO SCH (08:45)
[2022-06-06] MEDS: ACAMPROSATE CALCIUM 333MG TABLET (CAMPRAL) PO SCH (08:46)
[2022-06-06] MEDS ORDERED: FLUO20CA22 PO (08:50)
[2022-06-06] MEDS ORDERED: PALI1TAB2 PO (08:50)
[2022-06-06] MEDS ORDERED: TRAZ-186 PO (08:50)
[2022-06-06] MEDS ORDERED: ACAM0.05 PO (08:50)
== END 2022-06-06 12:15 | disposition home or self-care (01) | DRG 754 ==
LOC: M ED 09:23 → M ED INP 06-03 16:34 → M PSY 06-03 21:59
PROVIDERS: ADMIT Psychiatry & Neurology Psychiatry; ATTEND Psychiatry & Neurology Psychiatry
DX: F32.A Depression, unspecified (principal); R45.851 Suicidal ideations; F16.950 Hallucinogen use, unspecified with hallucinogen-induced psychotic disorder with delusions; F17.200 Nicotine dependence, unspecified, uncomplicated; F10.90 Alcohol use, unspecified, uncomplicated; R74.01 Elevation of levels of liver transaminase levels; M62.82 Rhabdomyolysis; E87.1 Hypo-osmolality and hyponatremia; Z79.899 Other long term (current) drug therapy; Z20.822 Contact with and (suspected) exposure to COVID-19; Z63.0 Problems in relationship with spouse or partner

== ENCOUNTER → 2022-11-11 | Outpatient (CLI) | payer MEDICAID ==
[~2022-11-11] MED LIST changes: +FLUO20CA22 PO
== END ==
LOC: M OUTALCOH 13:28
PROVIDERS: ATTEND Psychiatry & Neurology Psychiatry
DX: Z53.9 Procedure and treatment not carried out, unspecified reason (principal)

== ENCOUNTER 2022-11-21 12:58 | Outpatient (RCR) | payer MEDICAID | END 2022-11-22 | LOC: M OUTALCOH 12:58 | PROVIDERS: ATTEND Psychiatry & Neurology Psychiatry | DX: F10.20 Alcohol dependence, uncomplicated (principal); F17.200 Nicotine dependence, unspecified, uncomplicated ==

== ENCOUNTER 2022-12-19 09:00 | Outpatient (RCR) | payer MEDICAID | END 2022-12-23 | LOC: M OUTALCOH 09:00 | PROVIDERS: ATTEND Psychiatry & Neurology Psychiatry | DX: F10.20 Alcohol dependence, uncomplicated (principal); F17.200 Nicotine dependence, unspecified, uncomplicated ==

== ENCOUNTER → 2022-12-20 | Outpatient (REF) | payer MEDICAID ==
[2022-12-20 13:11] LABS: BASO % 0.3 % (0.0-1.0); HEMOGLOBIN 14.4 g/dl (13.5-17.5); LYMPH # 1.8 10^3/uL (1.5-5.0); LYMPH % 12.4 % (24.0-44.0); MEAN CORPUSCULAR HEMOGLOBIN 25.7 pg (27.0-33.0); MEAN CORPUSCULAR HGB CONC 33.5 g/dl (32.0-36.5); MEAN CORPUSCULAR VOLUME 76.6 fl (80.0-96.0); MONO # 0.5 10^3/uL (0.0-0.8); MONO % 3.7 % (2.0-8.0); NEUTROPHILS % 83.1 % (36.0-66.0); PLATELET COUNT, AUTOMATED 191 10^3/uL (150-450); RED BLOOD COUNT 5.61 10^6/uL (4.30-6.10); WHITE BLOOD COUNT 14.4 10^3/uL (4.0-10.0)
[2022-12-20 13:39] LABS: ALBUMIN 3.9 G/DL (3.2-5.2); ALKALINE PHOSPHATASE 80 U/L (46-116); ALT/SGPT 21 U/L (7.0-40); AST/SGOT 17 U/L (<34); BILIRUBIN,TOTAL 0.9 MG/DL (0.3-1.2); BLOOD UREA NITROGEN 15 MG/DL (9-23); CALCIUM LEVEL 8.9 MG/DL (8.5-10.1); CARBON DIOXIDE LEVEL 26 MMOL/L (20-31); CHLORIDE LEVEL 104 MMOL/L (98-107); GLOMERULAR FILTRATION RATE > 60.0 (>60); GLUCOSE, FASTING 127 MG/DL (60-100); SODIUM LEVEL 140 MMOL/L (136-145); TOTAL PROTEIN 7.7 G/DL (5.7-8.2)
[2022-12-20 14:13] LABS: HEPATITIS C VIRUS ABY INDEX 0.26 INDEX (<0.8)
[2022-12-21 23:06] LABS: HEPATITIS C QUANTITATION HCV Not Detected IU/mL (.)
== END ==
LOC: M LAB REF 12:18
PROVIDERS: ATTEND Family Medicine Addiction Medicine
DX: Z86.19 Personal history of other infectious and parasitic diseases (principal)

== ENCOUNTER 2023-01-22 16:00 | Outpatient (RCR) | payer MEDICAID | END 2023-01-23 | LOC: M OUTALCOH 16:00 | PROVIDERS: ATTEND Psychiatry & Neurology Psychiatry | DX: F10.20 Alcohol dependence, uncomplicated (principal); F17.200 Nicotine dependence, unspecified, uncomplicated ==

== ENCOUNTER 2023-03-28 16:02 | Outpatient (RCR) | payer MEDICAID | END 2023-04-24 | LOC: M OUTALCOH 16:02 | PROVIDERS: ATTEND Psychiatry & Neurology Psychiatry | DX: F10.20 Alcohol dependence, uncomplicated (principal); F17.200 Nicotine dependence, unspecified, uncomplicated ==

== ENCOUNTER 2023-06-17 08:07 | Emergency (ER) | payer MEDICAID ==
[~2023-06-17] VITALS: Ht 172.7 cm; Wt 72.2 kg
[2023-06-17 08:08] VITALS: BP 129/88; TEMP 95.9; O2SAT 98
[2023-06-17] MEDS ORDERED: KETOROLAC 30 MG/ML 1ML VIAL IV ONE (08:40)
[2023-06-17 09:34] LABS: BASO % 0.4 % (0.0-1.0); EOS # 0.1 10^3/uL (0.0-0.5); EOS % 1.7 % (0.0-3.0); HEMATOCRIT 44.5 % (42.0-52.0); HEMOGLOBIN 14.9 g/dl (13.5-17.5); LYMPH # 1.8 10^3/uL (1.5-5.0); LYMPH % 24.3 % (24.0-44.0); MEAN CORPUSCULAR HEMOGLOBIN 27.9 pg (27.0-33.0); MEAN CORPUSCULAR HGB CONC 33.5 g/dl (32.0-36.5); MEAN CORPUSCULAR VOLUME 83.2 fl (80.0-96.0); MONO # 0.7 10^3/uL (0.0-0.8); NEUTROPHILS # 4.6 10^3/uL (1.5-8.5); NEUTROPHILS % 63.3 % (36.0-66.0); PLATELET COUNT, AUTOMATED 170 10^3/uL (150-450); RED BLOOD COUNT 5.35 10^6/uL (4.30-6.10); WHITE BLOOD COUNT 7.2 10^3/uL (4.0-10.0)
[2023-06-17 09:57] LABS: ALBUMIN 3.4 G/DL (3.2-5.2); BILIRUBIN,DIRECT 0.1 MG/DL (<0.4); BILIRUBIN,TOTAL 0.4 MG/DL (0.3-1.2)
[2023-06-17 11:00] LABS: CHLAMYDIA DNA AMPLIFICATION NEGATIVE (NEGATIVE); GC DNA AMPLIFICATION NEGATIVE (NEGATIVE)
[2023-06-17] MEDS ORDERED: IBUP-1022 PO (11:15)
== END 2023-06-17 11:20 | disposition home or self-care (01) ==
LOC: M ED 08:07
DX: R30.0 Dysuria (principal); N45.2 Orchitis; F19.10 Other psychoactive substance abuse, uncomplicated; Z79.1 Long term (current) use of non-steroidal anti-inflammatories (NSAID); Z79.899 Other long term (current) drug therapy
CPT/HCPCS: 36415; 76870; 80047; 80076; 81001; 83690; 85025; 87661; 87810; 87850; 93976; 96374; 99284; J1885

== ENCOUNTER 2023-06-23 03:51 | Emergency (ER) | payer MEDICAID ==
[~2023-06-23 03:51] MED LIST changes: +IBUP-1022 PO
[2023-06-23] MEDS ORDERED: TRAZ1TAB14 PO (11:50)
== END 2023-06-23 04:04 | disposition left against medical advice (07) ==
LOC: M ED 03:51
DX: Z53.21 Procedure and treatment not carried out due to patient leaving prior to being seen by health care provider (principal)

== ENCOUNTER 2023-06-23 04:24 | Emergency (ER) | payer MEDICAID ==
[2023-06-23] MEDS ORDERED: OLANZapine INTRAMUSCULAR 10MG VIAL IM ONE (04:50)
[2023-06-23] MEDS ORDERED: LORazepam 2 MG/ML 1ML VIAL IV STA (04:50)
[2023-06-23 08:09] LABS: HEMATOCRIT 43.4 % (42.0-52.0); MEAN CORPUSCULAR HEMOGLOBIN 27.9 pg (27.0-33.0); MEAN CORPUSCULAR HGB CONC 34.6 g/dl (32.0-36.5); MEAN CORPUSCULAR VOLUME 80.7 fl (80.0-96.0); PLATELET COUNT, AUTOMATED 195 10^3/uL (150-450); RED BLOOD COUNT 5.38 10^6/uL (4.30-6.10); WHITE BLOOD COUNT 14.6 10^3/uL (4.0-10.0)
[2023-06-23] MEDS ORDERED: MED REC IN PROGRESS XX SCH (08:20)
[2023-06-23 08:39] LABS: ETHYL ALCOHOL (ETHANOL) < 0.003 % (0.000-0.010)
[2023-06-23 08:41] LABS: ALKALINE PHOSPHATASE 75 U/L (46-116); ALT/SGPT 21 U/L (7.0-40); AST/SGOT 26 U/L (<34); BILIRUBIN,DIRECT 0.2 MG/DL (<0.4); BILIRUBIN,TOTAL 0.7 MG/DL (0.3-1.2); BLOOD UREA NITROGEN 16 MG/DL (9-23); CALCIUM LEVEL 9.7 MG/DL (8.5-10.1); CARBON DIOXIDE LEVEL 26 MMOL/L (20-31); CHLORIDE LEVEL 102 MMOL/L (98-107); CREATININE FOR GFR 1.27 MG/DL (0.70-1.30); GLOMERULAR FILTRATION RATE > 60.0 (>60); GLUCOSE, FASTING 99 MG/DL (60-100); POTASSIUM SERUM 4.1 MMOL/L (3.5-5.1); SALICYLATE LEVEL < 3.0 MG/DL (<30); SODIUM LEVEL 136 MMOL/L (136-145)
[2023-06-23 08:44] LABS: THYROID STIMULATING HORMONE 1.667 uIU/ML (0.55-4.78)
[2023-06-23 11:49] LABS: AMPHETAMINES LEVEL URINE NEGATIVE (NEGATIVE); BARBITURATES URINE NEGATIVE (NEGATIVE); CANNABINOIDS URINE NEGATIVE (NEGATIVE); METHADONE URINE NEGATIVE (NEGATIVE); OPIATES URINE NEGATIVE (NEGATIVE); PHENCYCLIDINE URINE NEGATIVE (NEGATIVE)
[2023-06-23 11:50] LABS: BENZODIAZEPINES URINE NEGATIVE (NEGATIVE)
[2023-06-23] MEDS ORDERED: TRAZ1TAB14 PO (11:50)
[2023-06-23 11:54] LABS: COCAINE METABOLITE URINE POSITIVE (NEGATIVE)
[2023-06-23] MEDS ORDERED: HOME MED LIST COMPLETE! XX SCH (11:55)
[2023-06-23 20:49] VITALS: BP 122/68; TEMP 98.2; O2SAT 98
== END 2023-06-23 20:53 | disposition home or self-care (01) ==
LOC: M ED 04:24
DX: F19.10 Other psychoactive substance abuse, uncomplicated (principal); F14.10 Cocaine abuse, uncomplicated; Z79.1 Long term (current) use of non-steroidal anti-inflammatories (NSAID); Z79.899 Other long term (current) drug therapy
CPT/HCPCS: 80048; 80076; 80143; 80307; 82077; 84443; 85027; 87635; 96372; 96374; 99285; J2060; J2359

== ENCOUNTER → 2023-09-04 | Outpatient (REF) | payer MEDICAID, OTHER ==
[~2023-09-04] MED LIST changes: +TRAZ1TAB14 PO
[2023-09-04 17:14] LABS: BASO % 0.4 % (0.0-1.0); EOS # 0.1 10^3/uL (0.0-0.5); EOS % 0.9 % (0.0-3.0); HEMATOCRIT 41.3 % (42.0-52.0); HEMOGLOBIN 14.4 g/dl (13.5-17.5); LYMPH # 2.4 10^3/uL (1.5-5.0); LYMPH % 23.5 % (24.0-44.0); MEAN CORPUSCULAR HEMOGLOBIN 28.2 pg (27.0-33.0); MEAN CORPUSCULAR HGB CONC 34.9 g/dl (32.0-36.5); MONO # 0.7 10^3/uL (0.0-0.8); MONO % 6.4 % (2.0-8.0); NEUTROPHILS # 6.9 10^3/uL (1.5-8.5); NEUTROPHILS % 68.1 % (36.0-66.0); PLATELET COUNT, AUTOMATED 238 10^3/uL (150-450); WHITE BLOOD COUNT 10.1 10^3/uL (4.0-10.0)
[2023-09-04 17:37] LABS: INR 0.95; PROTHROMBIN TIME 12.4 SECONDS (12.5-14.5)
[2023-09-04 17:40] LABS: FREE T4 1.13 NG/DL (0.89-1.76); THYROID STIMULATING HORMONE 1.194 uIU/ML (0.55-4.78)
[2023-09-04 17:41] LABS: HEPATITIS B SURFACE ANTIBODY POSITIVE (POSITIVE)
[2023-09-04 17:42] LABS: ALBUMIN 3.3 G/DL (3.2-5.2); ALKALINE PHOSPHATASE 65 U/L (46-116); ALT/SGPT 15 U/L (7.0-40); AST/SGOT 15 U/L (<34); BILIRUBIN,TOTAL 0.4 MG/DL (0.3-1.2); BLOOD UREA NITROGEN 14 MG/DL (9-23); CALCIUM LEVEL 9.1 MG/DL (8.5-10.1); CARBON DIOXIDE LEVEL 28 MMOL/L (20-31); CHLORIDE LEVEL 105 MMOL/L (98-107); CREATININE FOR GFR 0.86 MG/DL (0.70-1.30); GLOMERULAR FILTRATION RATE > 60.0 (>60); GLUCOSE, FASTING 68 MG/DL (60-100); POTASSIUM SERUM 4.1 MMOL/L (3.5-5.1); SODIUM LEVEL 138 MMOL/L (136-145); TOTAL PROTEIN 7.1 G/DL (5.7-8.2)
[2023-09-04 17:43] LABS: TESTOSTERONE 177 NG/DL (241-827)
[2023-09-04 18:06] LABS: HIV 1&2 SCREEN NEGATIVE (NEGATIVE)
== END ==
LOC: M LAB REF 16:28
PROVIDERS: ATTEND Family Medicine Addiction Medicine
DX: R53.83 Other fatigue (principal); B18.2 Chronic viral hepatitis C

== ENCOUNTER → 2023-09-18 | Outpatient (REF) | payer OTHER | LOC: M LAB REF 16:32 | PROVIDERS: ATTEND Family Medicine Addiction Medicine | DX: R89.1 Abnormal level of hormones in specimens from other organs, systems and tissues (principal) ==

== ENCOUNTER 2023-09-23 03:07 | Emergency (ER) | payer OTHER ==
[~2023-09-23] VITALS: Ht 172.7 cm; Wt 70.5 kg
[~2023-09-23 03:07] MED LIST changes: +DOXY-323 PO; -DOXY-443 PO
[2023-09-23 07:18] LABS: GC DNA AMPLIFICATION POSITIVE (NEGATIVE)
[2023-09-23] MEDS ORDERED: DOXY-323 PO (07:45)
[2023-09-23] MEDS: cefTRIAXone 500MG VIAL IM ONE (08:02)
[2023-09-23] MEDS: LIDOCAINE 1% SDV 5ML VIAL DILUENT ONE (08:02)
[2023-09-23] MEDS: DOXYCYCLINE HYCLATE 100MG TABLET PO ONE (08:02)
[2023-09-23 09:01] VITALS: BP 141/74; TEMP 99.1; O2SAT 99
== END 2023-09-23 09:03 | disposition home or self-care (01) ==
LOC: M ED 03:07
DX: S63.615A Unspecified sprain of left ring finger, initial encounter (principal); N34.1 Nonspecific urethritis; A74.9 Chlamydial infection, unspecified; A54.9 Gonococcal infection, unspecified; Y92.9 Unspecified place or not applicable; Y93.9 Activity, unspecified; Y99.9 Unspecified external cause status; Z79.1 Long term (current) use of non-steroidal anti-inflammatories (NSAID); Z79.2 Long term (current) use of antibiotics; Z79.899 Other long term (current) drug therapy
CPT/HCPCS: 73140; 87810; 87850; 96372; 99284; J0696

== ENCOUNTER 2023-11-03 22:03 | Emergency (ER) | payer OTHER ==
[~2023-11-03] VITALS: Ht 170.2 cm; Wt 64.3 kg
[~2023-11-03 22:03] MED LIST changes: +FLUO-365 PO; -FLUO20CA22 PO
[2023-11-03 22:04] VITALS: BP 161/105; TEMP 96.8; O2SAT 98
== END 2023-11-04 01:19 | disposition left against medical advice (07) ==
LOC: M ED 22:03
DX: Z53.21 Procedure and treatment not carried out due to patient leaving prior to being seen by health care provider (principal)

== ENCOUNTER 2023-11-05 00:38 | Emergency (ER) | payer OTHER ==
[~2023-11-05] VITALS: Ht 170.2 cm; Wt 63.2 kg
[2023-11-05 00:39] VITALS: BP 128/90; TEMP 97.9; O2SAT 96
[2023-11-05 01:28] LABS: APPEARANCE, URINE HAZY (CLEAR); BACTERIA, URINE AUTO NEGATIVE (NEGATIVE); BILIRUBIN, URINE AUTO NEGATIVE (NEGATIVE); BLOOD, URINE BLOOD NEGATIVE (NEGATIVE); COLOR, URINE YELLOW (YELLOW); GLUCOSE, URINE (UA) AUTO NEGATIVE (NEGATIVE); KETONE, URINE AUTO TRACE mg/dL (NEGATIVE); LEUKOCYTE ESTERASE, URINE AUTO NEGATIVE (NEGATIVE); MUCUS, URINE SMALL (NEGATIVE); NITRITE, URINE AUTO NEGATIVE (NEGATIVE); PROTEIN, URINE AUTO 1+ mg/dL (NEGATIVE); RBC, URINE AUTO 2 /HPF (0-3); SPECIFIC GRAVITY URINE AUTO 1.024 (1.002-1.035); SQUAMOUS EPITHELIAL CELL UR AU 0 /HPF (0-6); WBC, URINE AUTO 3 /HPF (0-3)
[2023-11-05 01:52] LABS: BARBITURATES URINE NEGATIVE (NEGATIVE); BENZODIAZEPINES URINE NEGATIVE (NEGATIVE); METHADONE URINE NEGATIVE (NEGATIVE); OPIATES URINE NEGATIVE (NEGATIVE); PHENCYCLIDINE URINE NEGATIVE (NEGATIVE)
[2023-11-05 01:57] LABS: AMPHETAMINES LEVEL URINE POSITIVE (NEGATIVE); CANNABINOIDS URINE POSITIVE (NEGATIVE); COCAINE METABOLITE URINE POSITIVE (NEGATIVE)
[2023-11-05 02:28] LABS: Trichomonas vaginalis (AMP) NOT DETECTED (NEGATIVE)
[2023-11-05 02:52] LABS: GC DNA AMPLIFICATION NEGATIVE (NEGATIVE)
== END 2023-11-05 05:47 | disposition left against medical advice (07) ==
LOC: M ED 00:38
DX: Z53.21 Procedure and treatment not carried out due to patient leaving prior to being seen by health care provider (principal)

== ENCOUNTER → 2023-11-05 | Outpatient (REF) | payer OTHER ==
[2023-11-05 22:45] LABS: Trichomonas vaginalis (AMP) NOT DETECTED (NEGATIVE)
[2023-11-05 23:09] LABS: GC DNA AMPLIFICATION NEGATIVE (NEGATIVE)
== END ==
LOC: M LAB REF 21:07
PROVIDERS: ATTEND Physician Assistant
DX: Z20.2 Contact with and (suspected) exposure to infections with a predominantly sexual mode of transmission (principal)

== ENCOUNTER 2023-11-07 22:23 | Emergency (ER) | payer OTHER ==
[~2023-11-07] VITALS: Ht 170.2 cm; Wt 68.7 kg
[2023-11-08 00:11] LABS: Trichomonas vaginalis (AMP) NOT DETECTED (NEGATIVE)
[2023-11-08 00:35] LABS: GC DNA AMPLIFICATION NEGATIVE (NEGATIVE)
[2023-11-08 01:53] VITALS: BP 119/84; TEMP 98; O2SAT 100
[2023-11-08] MEDS ORDERED: VALT1TAB PO (02:12)
[2023-11-08] MEDS ORDERED: DOXY-323 PO (02:12)
== END 2023-11-08 02:31 | disposition home or self-care (01) ==
LOC: M ED 22:23
DX: A60.02 Herpesviral infection of other male genital organs (principal); A74.9 Chlamydial infection, unspecified; F19.10 Other psychoactive substance abuse, uncomplicated; F17.200 Nicotine dependence, unspecified, uncomplicated; F10.10 Alcohol abuse, uncomplicated; Z79.2 Long term (current) use of antibiotics; Z79.899 Other long term (current) drug therapy

== ENCOUNTER 2023-11-14 12:15 | Emergency (ER) | payer OTHER ==
[~2023-11-14] VITALS: Ht 167.6 cm; Wt 65.2 kg
[~2023-11-14 12:15] MED LIST changes: +VALT1TAB PO
[2023-11-14 12:17] VITALS: BP 133/92; TEMP 98.7; O2SAT 100
[2023-11-14 13:51] LABS: BARBITURATES URINE NEGATIVE (NEGATIVE); BENZODIAZEPINES URINE NEGATIVE (NEGATIVE); METHADONE URINE NEGATIVE (NEGATIVE); OPIATES URINE NEGATIVE (NEGATIVE); PHENCYCLIDINE URINE NEGATIVE (NEGATIVE)
[2023-11-14 13:56] LABS: AMPHETAMINES LEVEL URINE POSITIVE (NEGATIVE); CANNABINOIDS URINE POSITIVE (NEGATIVE); COCAINE METABOLITE URINE POSITIVE (NEGATIVE)
[2023-11-14 14:40] LABS: Trichomonas vaginalis (AMP) NOT DETECTED (NEGATIVE)
[2023-11-14 15:03] LABS: GC DNA AMPLIFICATION NEGATIVE (NEGATIVE)
== END 2023-11-14 13:43 | disposition left against medical advice (07) ==
LOC: M ED 12:15
DX: Z53.21 Procedure and treatment not carried out due to patient leaving prior to being seen by health care provider (principal)

== ENCOUNTER 2023-11-15 00:09 | Emergency (ER) | payer OTHER ==
[~2023-11-15] VITALS: Ht 167.6 cm; Wt 64.4 kg
[2023-11-15 00:11] VITALS: BP 135/81; TEMP 98.7; O2SAT 100
== END 2023-11-15 03:46 | disposition left against medical advice (07) ==
LOC: M ED 00:09
DX: Z53.21 Procedure and treatment not carried out due to patient leaving prior to being seen by health care provider (principal)

== ENCOUNTER 2023-11-15 17:52 | Emergency (ER) | payer OTHER ==
[~2023-11-15] VITALS: Ht 170.2 cm; Wt 65.2 kg
[2023-11-15 17:53] VITALS: BP 135/88; TEMP 97.5; O2SAT 100
== END 2023-11-15 18:15 | disposition left against medical advice (07) ==
LOC: M ED 17:52
DX: Z53.21 Procedure and treatment not carried out due to patient leaving prior to being seen by health care provider (principal)

== ENCOUNTER 2023-11-16 03:07 | Emergency (ER) | payer OTHER ==
[~2023-11-16] VITALS: Ht 167.6 cm; Wt 81.8 kg
[2023-11-16 03:08] VITALS: BP 135/81; TEMP 98.5; O2SAT 100
== END 2023-11-16 06:11 | disposition left against medical advice (07) ==
LOC: M ED 03:07
DX: Z53.21 Procedure and treatment not carried out due to patient leaving prior to being seen by health care provider (principal)

== ENCOUNTER 2023-12-09 06:07 | Emergency (ER) | payer OTHER, SELFPAY ==
[~2023-12-09] VITALS: Ht 167.6 cm; Wt 62.9 kg
[2023-12-09 06:08] VITALS: BP 123/75; TEMP 98.1; O2SAT 97
[2023-12-09 07:24] LABS: HEMOGLOBIN 14.8 g/dl (13.5-17.5); MEAN CORPUSCULAR HEMOGLOBIN 28.1 pg (27.0-33.0); MEAN CORPUSCULAR HGB CONC 34.4 g/dl (32.0-36.5); MEAN CORPUSCULAR VOLUME 81.6 fl (80.0-96.0); PLATELET COUNT, AUTOMATED 178 10^3/uL (150-450); RED BLOOD COUNT 5.27 10^6/uL (4.30-6.10); WHITE BLOOD COUNT 8.3 10^3/uL (4.0-10.0)
[2023-12-09 07:51] LABS: ETHYL ALCOHOL (ETHANOL) 0.006 % (0.000-0.010)
[2023-12-09 07:53] LABS: ALBUMIN 3.5 G/DL (3.2-5.2); ALKALINE PHOSPHATASE 68 U/L (46-116); ALT/SGPT 15 U/L (7.0-40); AST/SGOT 18 U/L (<34); BILIRUBIN,DIRECT 0.2 MG/DL (<0.4); BILIRUBIN,TOTAL 0.7 MG/DL (0.3-1.2); BLOOD UREA NITROGEN 15 MG/DL (9-23); CALCIUM LEVEL 8.9 MG/DL (8.5-10.1); CARBON DIOXIDE LEVEL 27 MMOL/L (20-31); CHLORIDE LEVEL 107 MMOL/L (98-107); CREATININE FOR GFR 0.73 MG/DL (0.70-1.30); GLOMERULAR FILTRATION RATE > 60.0 (>60); GLUCOSE, FASTING 88 MG/DL (60-100); POTASSIUM SERUM 3.7 MMOL/L (3.5-5.1); SALICYLATE LEVEL < 3.0 MG/DL (<30); SODIUM LEVEL 142 MMOL/L (136-145)
[2023-12-09 07:55] LABS: THYROID STIMULATING HORMONE 1.199 uIU/ML (0.55-4.78)
[2023-12-09 08:40] LABS: BARBITURATES URINE NEGATIVE (NEGATIVE); BENZODIAZEPINES URINE NEGATIVE (NEGATIVE); METHADONE URINE NEGATIVE (NEGATIVE); OPIATES URINE NEGATIVE (NEGATIVE); PHENCYCLIDINE URINE NEGATIVE (NEGATIVE)
[2023-12-09 08:41] LABS: AMPHETAMINES LEVEL URINE POSITIVE (NEGATIVE); CANNABINOIDS URINE POSITIVE (NEGATIVE); COCAINE METABOLITE URINE POSITIVE (NEGATIVE)
== END 2023-12-09 09:27 | disposition home or self-care (01) ==
LOC: M ED 06:07
DX: F19.959 Other psychoactive substance use, unspecified with psychoactive substance-induced psychotic disorder, unspecified (principal); F17.200 Nicotine dependence, unspecified, uncomplicated; F10.10 Alcohol abuse, uncomplicated

== ENCOUNTER → 2024-01-23 | Outpatient (CLI) | payer OTHER | LOC: M RAD 07:34 | PROVIDERS: ATTEND Physician Assistant Medical | DX: R10.11 Right upper quadrant pain (principal) ==

== ENCOUNTER 2025-01-26 16:26 | Emergency (ER) | payer OTHER, SELFPAY ==
[~2025-01-26] VITALS: Ht 172.7 cm; Wt 78.3 kg
[~2025-01-26 16:26] MED LIST changes: -DOXY-323 PO; +DOXY-441 PO; -IBUP-1022 PO; +IBUP600T42 PO
[2025-01-26 16:31] VITALS: BP 147/104; TEMP 97.1; O2SAT 95
== END 2025-01-26 18:29 | disposition left against medical advice (07) ==
LOC: M ED 16:26
DX: Z53.21 Procedure and treatment not carried out due to patient leaving prior to being seen by health care provider (principal)